=== PATIENT | male | born 1950 | race Caucasian/White ===

== ENCOUNTER 2019-10-26 07:29 | Emergency (ER) | payer OTHER, MEDICARE, SELFPAY ==
[2019-10-26 07:30] VITALS: BP 188/119; PULSE 114; RESP 18; TEMP 36.3; O2SAT 98; BMI 25.7
[2019-10-26 07:38] VITALS: BP 188/119; PULSE 114; RESP 18; TEMP 36.3; O2SAT 98
--- NOTE | 2019-10-26 07:48 | CT_ITS ---
STUDY: CT ABDOMEN AND PELVIS WITH CONTRAST REASON FOR EXAM: Male, 69 years old. MID ABDOM PAIN X 3 DAYS RADIATION DOSAGE (If Supplied By Facility): CTDIvol = ( 21.87 ) mGy, DLP = ( 851.05 ) mGycm TECHNIQUE: Transaxial images were obtained from the dome of the diaphragm to the symphysis pubis without oral contrast. IV 100mL Isovue-300 was administered. Sagittal and coronal images were reconstructed. Individualized dose optimization techniques were used for this CT. COMPARISON: None. FINDINGS: Minimal linear scarring at the right lung base. Coronary artery calcification. Normal liver. Small amount of perihepatic free fluid. Mildly distended gallbladder. I suspect sludge within the gallbladder lumen. Normal spleen. Normal pancreas. Extensive thrombus is seen within the superior mesenteric vein and the branches. The thrombus extends into the portal vein as well as the splenic vein. Diffuse edematous changes in the root of the mesentery. Normal bilateral adrenal glands. Normal right kidney. Normal left kidney. There is a small hiatal hernia. There is diffuse circumferential wall thickening and edema of the multiple small bowel loops in the jejunum and proximal ileum. Normal colon. The appendix is visualized and appears normal. There is diffuse atherosclerotic calcification of the abdominal aorta, without a demonstrated aneurysm. Normal inferior vena cava. Normal retroperitoneum. Normal urinary bladder. There are prostatic calcifications. Normal abdominal wall. Normal osseous structures. 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 Mural thickening of the several small bowel loops with edema and edema of the root of the mesentery. Small amount of perihepatic fluid. N.B. : The above information has been verbally conveyed by Tao Ramirez to MAGNUS FITZPATRICK on 10/26/2019 09:37:34 (ET). Electronically Signed: Tao Ramirez, at 9:40 EDT , Service support ,
--- NOTE | 2019-10-26 07:49 | ED.DCSUM_ITS ---
History of Present Illness Chief Complaint: Abd Pain Informant: Patient, Family Narrative: Patient is a 69-year-old male with a past medical history of diabetes, hypertension who presents to the emergency department for 3 days of abdominal pain. The majority the pain is around the umbilical region. He describes as a tight squeezing very severe pain. He has never had anything like this before in the past. It has been constant. He tried taking Tylenol for which did not give him any relief. No radiation into his back. He does not know any aggravating or relieving factors. No previous abdominal surgeries. Denies any nausea/vomiting. No fever/chills. No diarrhea/constipation, blood in stool or black tarry stools. He denies any chest pain or shortness of breath. No cough, cold, congestion. He has had some sweats. He is a current every day smoker. Past Medical History - Allergies and Home Meds Allergies/Adverse Reactions: Allergies No Known Allergies Allergy (Verified 10/26/19 07:33) Primary Care Physician: [facility] [Primary Care Provider] - Prior records reviewed: Yes Past Medical History: - - Diabetes, hypertension Surgical History: no surgical history Smoking Status: Current every day smoker Alcohol: Rare Drugs: None Review of Systems All systems negative except as indicated General: Reports: Sweats. Denies: Chills, Fever Eyes: Denies: Visual changes - bilaterally, Diplopia ENT: Denies: Rhinorrhea, Sore throat Cardiovascular: Denies: Chest pain, Palpitations Respiratory: Denies: Dyspnea, Cough, Dyspnea on exertion Gastrointestinal: Reports: Abdominal pain. Denies: Nausea, Vomiting, Diarrhea, Melena, Hematochezia Genitourinary: Denies: Dysuria, Hematuria, Frequency Musculoskeletal: Denies: Back pain, Extremity Pain Skin: Denies: Rash, Wounds Neurological: Denies: Headache, Weakness, Numbness Physical Exam Vital Signs/Narrative: Vital Signs Temp Pulse Resp BP Pulse Ox 10/26/19 07:38 97.4 F L 114 H 18 188/119 H 98 10/26/19 07:30 97.4 F L 114 H 18 188/119 H 98 Inital Vital Signs reviewed: Yes - Tachycardic, hypertensive General: Well nourished, Well developed, - - Patient does appear uncomfortable and is bracing himself. Head: Normocephalic, Atraumatic Eyes: Perrl, EOMI ENT: Moist mucous membranes, No rhinorrhea Neck: Supple, Nontender Cardiovascular: Regular rate, Regular rhythm, No murmurs Respiratory: No distress, CTA bilaterally, Chest nontender Abdomen: Soft, Nondistended, Tender - Periumbilical, no pain over McBurney's point., Guarding. Negative for: Rebound tenderness, Wills's sign Back: Nontender, Normal Inspection. Negative for: CVA tenderness Extremities: Nontender, No edema Skin: Normal color, No rash Neurological: Alert, Oriented x3, Cranial nerves II-XII grossly intact, Normal Strength, Normal Sensation Psychological: Normal affect, Normal Mood Diagnostic/Tx/Re-eval - EKG Initial EKG Interpretation: - - Rate of 106 bpm in sinus tachycardia. Left axis deviation. Normal intervals. No ST elevations or depressions appreciated. No T wave abnormalities. No prior EKG for comparison. - Medical Decision Making Patient presents to the emergency department for abdominal pain. Upon arrival to the emerge department is tachycardic and hypertensive. Does appear very uncomfortable. Given morphine for symptomatic treatment. Basic lab work obtained along with CT scan of the abdomen/pelvis. Unfortunately CT scan showed a enteric venous thrombosis with bowel wall thickening as well as edema around the bowel and mesenteric branch. Patient will require transfer due to specialized services to treat this. Patient did get 2 L of normal saline here in the emergency department. He was given a dose of Zosyn. Patient started on heparin per ICU doctor request at accepting site. This was all described to the patient and his daughter. They understand and are agreeable this plan. He has been tachycardic but otherwise stable throughout ED stay. Pain is relatively well controlled with the morphine. Patient transferred to [facility] as the first request of [facility] and also [facility] were not accepting patients.. - Critical Care Time Critical care time (excluding procedures): 30-74 minutes, Discussing w/Patient &/or Family/[employer], Discussing w/Consultants, Arranging Admission or Transfer, Performing Direct Patient Care at Bedside ED Disposition - Plan for ED Patient: Disposition: [facility] Diagnosis: Mesenteric venous thrombosis, Edema of small intestine, Severe sepsis [facility] [[facility] Care Provider] -
[2019-10-26] MEDS: Morphine 4 MG/ML Syringe IV (08:23)
[2019-10-26] MEDS: Ondansetron 4 MG/2 ML Vial IV (08:23)
[2019-10-26] MEDS: 0.9% Normal Saline 1,000 ML 999 ML IV ×2 (08:24→09:20)
--- NOTE | 2019-10-26 08:25 | ED.RN ---
NO OLD EKGS
[2019-10-26 08:26] LABS: Absolute Lymphocyte Count 1.36 X10^3/uL (0.83-4.51); Absolute Neutrophil Count 14.1 X10^3/uL (2.0-7.7); Basophil# 0.03 X10^3/uL; Basophil% 0.2 % (0-1); Differential Indicated SCAN CRITERIA MET; Eosinophil# 0.02 X10^3/uL; Eosinophils% 0.1 % (0-5); Hematocrit 47.2 % (40-54); Hemoglobin 16.3 g/dL (13.0-16.5); Lymphocyte # 1.36 X10^3/ul (4.0); Lymphocyte % 7.9 % (19-41); Mean Corp Hgb Conc 34.5 g/dL (32-36); Mean Corpuscular Hgb 30.9 pg (27.0-32.0); Mean Corpuscular Volume 89.6 fL (80-94); Mean Platelet Vol. 11.1 fl (6.2-12.0); Monocyte# 1.53 X10^3/uL; Monocyte% 8.9 % (0-10); NRBC Flagged by Analyzer 0 % (0-5); Neutrophil # 14.14 X10^3/uL (2.7-7.7); Neutrophil % 82.1 % (47-70); POSITIVE DIFFERENTIAL YES; Platelet Count 193 K/mm3 (150-450); RBC Distribution Width CV 13.7 % (11.6-14.6); RBC Distribution Width SD 44.5 fl (35.1-43.9); Red Blood Count 5.27 M/mm3 (4.6-6.2); White Blood Count 17.2 K/mm3 (4.4-11.0)
[2019-10-26 08:33] VITALS: BP 181/101; PULSE 100; RESP 18; TEMP 36.6; O2SAT 96
[2019-10-26 08:44] LABS: ALB/GLOB Ratio 0.7 RATIO (0.9-2.4); AST(SGOT) 27 U/L (15-37); Alanine Aminotransfer ALT/SGPT 19 U/L (16-61); Albumin, Serum 3.5 g/dL (3.2-5.0); Alkaline Phosphatase 102 U/L (45-117); Anion Gap 9 (5-15); BUN 20 mg/dL (7-18); BUN/Creat Ratio 15.3 RATIO (10-20); Calcium,Total 9.3 mg/dL (8.5-10.1); Chloride 100 mmol/L (98-107); Creatinine, Serum 1.31 mg/dL (0.70-1.30); EST Glomerular Filtration Rate 57 mL/min (>60); Est Glom Filt Rate - Afr Amer 69 mL/min (>60); Estimated Creatinine Clearance 48.36 ml/min; Globulin 5.2 g/dL (2.2-4.2); Glucose 229 mg/dL (74-106); Lipase 104 U/L (73-393); Potassium 4.6 mmol/L (3.5-5.1); Protein, Total 8.7 g/dL (6.4-8.2); Sodium Level 129 mmol/L (136-145)
--- NOTE | 2019-10-26 08:50 | ED.RN ---
DR FITZPATRICK NOTIFIED PT C/O BURNING UP ON THE INSIDE
[2019-10-26 08:55] LABS: Lactic Acid 2.6 mmol/L (0.4-1.9)
--- NOTE | 2019-10-26 08:58 | ED.RN ---
0852-- sepsis alert . dr alan notified. no new orders at present time.
[2019-10-26 09:00] VITALS: BP 172/98; PULSE 101; RESP 18; TEMP 36.6; O2SAT 99
--- NOTE | 2019-10-26 09:38 | ED.RN ---
[facility] NO BEDS AVAILABLE.
--- NOTE | 2019-10-26 09:39 | EKG12_ITS ---
Test Reason : ABD PAIN Blood Pressure : / mmHG Vent. Rate : 106 BPM Atrial Rate : 106 BPM P-R Int : 198 ms QRS Dur : 080 ms QT Int : 352 ms P-R-T Axes : 027 -55 030 degrees QTc Int : 467 ms Sinus tachycardia Left axis deviation Low voltage QRS Inferior infarct , age undetermined Anterolateral infarct , age undetermined Abnormal ECG Confirmed by JANE GARCIA, REY ([id number]), make up editor AL CAMPA ([id number]) on 10/31/2019 8:52:05 AM Referred By: NANETTE Confirmed By:REY LARA MD
--- NOTE | 2019-10-26 09:40 | ED.RN ---
[facility] CLOSED TO OUTSIDE TRANSFERS
--- NOTE | 2019-10-26 09:49 | ED.RN ---
[facility] NO TRAVEL BENEFITS
--- NOTE | 2019-10-26 09:53 | ED.RN ---
[facility] RE[facility], CHART FA[facility]ED TO THEM.
[2019-10-26 10:00] VITALS: BP 179/99; PULSE 112; RESP 16; TEMP 36.6; O2SAT 98; O2SAT 99
--- NOTE | 2019-10-26 10:09 | NURSING ---
1001 called [facility] 1007 15 min eta
[2019-10-26 10:17] LABS: International Normalized Ratio 1.3; Prothrombin Time (Protime)PT. 15.9 SECONDS (11.7-14.9)
[2019-10-26 10:18] LABS: Partial Thromboplast Time 28.8 Seconds (24.1-36.2)
[2019-10-26] MEDS: Heparin Injection (Vial) 5,000 UNIT/ML VIAL 4000 UNIT IV (10:19)
[2019-10-26] MEDS: HEPARIN/D5w 25,000 UNITS 25,000 UNITS/250 ML IV.SOLN. 9 UNITS IV (10:39)
[2019-10-26 10:46] VITALS: BP 179/99; PULSE 112; RESP 16; O2SAT 99
[2019-10-26 12:22] LABS: Reflex Lactate? Y
[2019-10-26 13:56] LABS: Pathologist Review Reviewed
== END 2019-10-26 10:49 | disposition short-term general hospital (02) ==
PROVIDERS: Emergency Provider Emergency Medicine
DX: A41.9 Sepsis, unspecified organism (principal); R65.20 Severe sepsis without septic shock; I82.890 Acute embolism and thrombosis of other specified veins; K55.059 Acute (reversible) ischemia of intestine, part and extent unspecified; E11.9 Type 2 diabetes mellitus without complications; I10 Essential (primary) hypertension; F17.200 Nicotine dependence, unspecified, uncomplicated
CPT/HCPCS: 74177; 80053; 83605; 83690; 84484; 85025; 85610; 85730; 93005; 96361; 96365; 96375; 99285; J7030; Q9967; A4216; J2405

== ENCOUNTER 2020-04-08 16:14 | Outpatient (RCR) | payer MEDICARE, SELFPAY ==
[2020-04-08 18:01] LABS: Hematocrit 37.7 % (40-54); Hemoglobin 11.8 g/dL (13.0-16.5); Mean Corp Hgb Conc 31.3 g/dL (32-36); Mean Corpuscular Volume 92.6 fL (80-94); Mean Platelet Vol. 11.6 fl (6.2-12.0); Platelet Count 289 K/mm3 (150-450); RBC Distribution Width CV 15.9 % (11.6-14.6); RBC Distribution Width SD 53.8 fl (35.1-43.9); Red Blood Count 4.07 M/mm3 (4.6-6.2); White Blood Count 8.1 K/mm3 (4.4-11.0)
[2020-04-08 18:03] LABS: International Normalized Ratio 3.1; Prothrombin Time (Protime)PT. 31.8 SECONDS (11.7-14.9)
== END 2020-04-08 18:00 | disposition home or self-care (01) ==
LOC: MTLAB 16:14
DX: Z79.01 Long term (current) use of anticoagulants (principal)
CPT/HCPCS: 36415; 85027; 85610

== ENCOUNTER 2020-05-02 16:45 | Outpatient (RCR) | payer MEDICARE, MEDICAID, SELFPAY ==
[2020-05-02 17:57] LABS: Prothrombin Time (Protime)PT. 22.1 SECONDS (11.7-14.9)
== END 2020-05-02 18:00 | disposition home or self-care (01) ==
LOC: MTLAB 16:45
DX: Z79.01 Long term (current) use of anticoagulants (principal)
CPT/HCPCS: 36415; 85610

== ENCOUNTER 2020-05-30 15:33 | Outpatient (RCR) | payer MEDICARE, MEDICAID, SELFPAY ==
[2020-05-30 17:41] LABS: International Normalized Ratio 3.1; Prothrombin Time (Protime)PT. 31.4 SECONDS (11.7-14.9)
== END 2020-05-30 18:00 | disposition home or self-care (01) ==
LOC: MTLAB 15:33
DX: Z79.01 Long term (current) use of anticoagulants (principal)
CPT/HCPCS: 36415; 85610

== ENCOUNTER 2020-08-09 14:41 | Outpatient (RCR) | payer MEDICARE, MEDICAID, SELFPAY ==
[2020-08-09 17:37] LABS: International Normalized Ratio 1.7; Prothrombin Time (Protime)PT. 19.4 SECONDS (11.7-14.9)
== END 2020-08-09 18:00 | disposition home or self-care (01) ==
LOC: MTLAB 14:41
DX: Z79.01 Long term (current) use of anticoagulants (principal)
CPT/HCPCS: 36415; 85610

== ENCOUNTER 2020-09-17 16:14 | Outpatient (RCR) | payer MEDICARE, MEDICAID, SELFPAY ==
[2020-08-29 18:01] LABS: International Normalized Ratio 1.4; Prothrombin Time (Protime)PT. 16.3 SECONDS (11.7-14.9)
[2020-09-17 17:50] LABS: International Normalized Ratio 1.8; Prothrombin Time (Protime)PT. 20.6 SECONDS (11.7-14.9)
[2020-09-17 17:53] LABS: Hematocrit 36.1 % (40-54); Hemoglobin 11.2 g/dL (13.0-16.5); Mean Corpuscular Hgb 29.3 pg (27.0-32.0); Mean Corpuscular Volume 94.5 fL (80-94); Platelet Count 172 K/mm3 (150-450); RBC Distribution Width CV 15.2 % (11.6-14.6); Red Blood Count 3.82 M/mm3 (4.6-6.2); White Blood Count 4.7 K/mm3 (4.4-11.0)
== END 2020-09-17 18:00 | disposition home or self-care (01) ==
LOC: MTLAB 16:14
DX: Z79.01 Long term (current) use of anticoagulants (principal)
CPT/HCPCS: 36415; 85027; 85610

== ENCOUNTER 2020-10-29 16:59 | Outpatient (RCR) | payer MEDICARE, MEDICAID, SELFPAY ==
[2020-10-29 18:01] LABS: International Normalized Ratio 2.7; Prothrombin Time (Protime)PT. 27.8 SECONDS (11.7-14.9)
== END 2020-10-29 18:00 | disposition home or self-care (01) ==
LOC: MTLAB 16:59
DX: Z79.01 Long term (current) use of anticoagulants (principal)
CPT/HCPCS: 36415; 85610

== ENCOUNTER 2020-12-05 15:51 | Outpatient (RCR) | payer MEDICARE, MEDICAID, SELFPAY ==
[2020-11-27 01:24] VITALS: BMI 25.7
[2020-12-05 18:33] LABS: International Normalized Ratio 1.7; Prothrombin Time (Protime)PT. 19.6 SECONDS (11.7-14.9)
== END 2020-12-05 18:00 | disposition home or self-care (01) ==
LOC: MTLAB 15:51
DX: Z79.01 Long term (current) use of anticoagulants (principal)
CPT/HCPCS: 36415; 85610

== ENCOUNTER 2021-01-07 16:44 | Outpatient (RCR) | payer MEDICARE, MEDICAID, SELFPAY ==
[2020-12-27 01:59] VITALS: BMI 25.7
[2021-01-07 18:04] LABS: International Normalized Ratio 2.2; Prothrombin Time (Protime)PT. 23.7 SECONDS (11.7-14.9)
== END 2021-01-26 18:00 | disposition home or self-care (01) ==
LOC: MTLAB 16:44
DX: Z79.01 Long term (current) use of anticoagulants (principal)
CPT/HCPCS: 36415; 85610

== ENCOUNTER 2021-01-30 16:45 | Outpatient (RCR) | payer MEDICARE, MEDICAID, SELFPAY ==
[2021-01-26 20:37] VITALS: BMI 25.7
[2021-01-30 18:14] LABS: International Normalized Ratio 2.7; Prothrombin Time (Protime)PT. 27.8 SECONDS (11.7-14.9)
== END 2021-02-25 18:00 | disposition home or self-care (01) ==
LOC: MTLAB 16:45
DX: Z79.01 Long term (current) use of anticoagulants (principal)
CPT/HCPCS: 36415; 85610

== ENCOUNTER 2021-02-27 16:21 | Outpatient (RCR) | payer MEDICARE, MEDICAID, SELFPAY ==
[2021-02-26 04:09] VITALS: BMI 25.7
[2021-02-27 17:45] LABS: International Normalized Ratio 2.5; Prothrombin Time (Protime)PT. 26.1 SECONDS (11.7-14.9)
== END 2021-03-29 18:00 | disposition home or self-care (01) ==
LOC: MTLAB 16:21
DX: Z79.01 Long term (current) use of anticoagulants (principal)
CPT/HCPCS: 36415; 85610

== ENCOUNTER 2021-04-03 15:18 | Outpatient (RCR) | payer MEDICARE, MEDICAID, SELFPAY ==
[2021-03-30 18:22] VITALS: BMI 25.7
[2021-04-03 18:28] LABS: International Normalized Ratio 2.5; Prothrombin Time (Protime)PT. 26.1 SECONDS (11.7-14.9)
== END 2021-04-28 18:00 | disposition home or self-care (01) ==
LOC: MTLAB 15:18
DX: Z79.01 Long term (current) use of anticoagulants (principal)
CPT/HCPCS: 36415; 85610

== ENCOUNTER 2021-05-15 15:18 | Outpatient (RCR) | payer MEDICARE, MEDICAID, SELFPAY ==
[2021-04-29 01:46] VITALS: BMI 25.7
[2021-05-15 18:02] LABS: International Normalized Ratio 2.8; Prothrombin Time (Protime)PT. 28.4 SECONDS (11.7-14.9)
== END 2021-05-15 23:59 | disposition home or self-care (01) ==
LOC: MTLAB 15:18
DX: I48.20 Chronic atrial fibrillation, unspecified (principal); Z79.01 Long term (current) use of anticoagulants
CPT/HCPCS: 36415; 85610

== ENCOUNTER 2021-08-14 16:54 | Outpatient (RCR) | payer MEDICARE, MEDICAID, SELFPAY ==
[2021-05-27 10:20] VITALS: BMI 25.7
[2021-08-14 17:53] LABS: Hematocrit 34.7 % (40-54); Hemoglobin 10.8 g/dL (13.0-16.5); Mean Corp Hgb Conc 31.1 g/dL (32-36); Mean Corpuscular Hgb 29.4 pg (27.0-32.0); Mean Corpuscular Volume 94.6 fL (80-94); Mean Platelet Vol. 11.2 fl (6.2-12.0); Platelet Count 191 K/mm3 (150-450); RBC Distribution Width CV 16.9 % (11.6-14.6); Red Blood Count 3.67 M/mm3 (4.6-6.2); White Blood Count 4.5 K/mm3 (4.4-11.0)
[2021-08-14 17:58] LABS: Prothrombin Time (Protime)PT. 31.2 SECONDS (11.7-14.9)
== END 2021-08-14 18:00 | disposition home or self-care (01) ==
LOC: MTLAB 16:54
DX: Z79.01 Long term (current) use of anticoagulants (principal)
CPT/HCPCS: 36415; 85027; 85610

== ENCOUNTER → 2021-09-05 | Outpatient (REF) | payer MEDICARE, MEDICAID, SELFPAY ==
[2021-09-05 08:51] LABS: INR Fingerstick 4.6; Prothrombin Time Fingerstick 50.1 SEC (11.7-14.9)
[2021-09-05 09:03] LABS: Prothrombin Time (Protime)PT. 47.9 SECONDS (11.7-14.9)
[2021-09-05 09:18] LABS: International Normalized Ratio 5.2
== END | disposition home or self-care (01) ==
LOC: OLS.SW1020 05:00
PROVIDERS: Visit Provider Internal Medicine
DX: Z79.01 Long term (current) use of anticoagulants (principal)
CPT/HCPCS: 36416; 85610

== ENCOUNTER → 2021-09-08 | Outpatient (REF) | payer MEDICARE, MEDICAID, SELFPAY ==
[2021-09-08 07:50] LABS: INR Fingerstick 1.2; Prothrombin Time Fingerstick 14.4 SEC (11.7-14.9)
== END | disposition home or self-care (01) ==
LOC: OLS.SW1020 04:00
PROVIDERS: Referring Provider Internal Medicine; Visit Provider Internal Medicine
DX: Z79.01 Long term (current) use of anticoagulants (principal)
CPT/HCPCS: 36416; 85610

== ENCOUNTER 2021-09-15 06:10 | Outpatient (REF) | payer SELFPAY ==
[2021-09-15 09:05] LABS: Absolute Lymphocyte Count 0.59 X10^3/uL (0.83-4.51); Absolute Neutrophil Count 2.6 X10^3/uL (2.0-7.7); Basophil# 0.01 X10^3/uL; Basophil% 0.3 % (0-1); Eosinophil# 0.12 X10^3/uL; Hematocrit 27.1 % (40-54); Hemoglobin 8.8 g/dL (13.0-16.5); Lymphocyte # 0.59 X10^3/ul (0.83-4.51); Mean Corp Hgb Conc 32.5 g/dL (32-36); Mean Corpuscular Hgb 29.4 pg (27.0-32.0); Mean Corpuscular Volume 90.6 fL (80-94); Mean Platelet Vol. 11.6 fl (6.2-12.0); Monocyte# 0.59 X10^3/uL; NRBC Flagged by Analyzer 0 % (0-5); Neutrophil # 2.61 X10^3/uL (2.7-7.7); Neutrophil % 66.2 % (47-70); POSITIVE DIFFERENTIAL YES; Platelet Count 143 K/mm3 (150-450); RBC Distribution Width SD 53.3 fl (35.1-43.9); Red Blood Count 2.99 M/mm3 (4.6-6.2); White Blood Count 3.9 K/mm3 (4.4-11.0)
[2021-09-15 09:10] LABS: Differential Indicated SCAN CRITERIA MET
[2021-09-15 09:15] LABS: International Normalized Ratio 1.5; Prothrombin Time (Protime)PT. 18.1 SECONDS (11.7-14.9)
[2021-09-15 09:29] LABS: Anion Gap 6 (5-15); BUN 12 mg/dL (7-18); BUN/Creat Ratio 14.1 RATIO (10-20); Calcium,Total 8.3 mg/dL (8.5-10.1); Chloride 107 mmol/L (98-107); Cholesterol 71 mg/dL (200); Creatinine, Serum 0.85 mg/dL (0.70-1.30); EST Glomerular Filtration Rate 94 mL/min (>60); Est Glom Filt Rate - Afr Amer 114 mL/min (>60); Ferritin 95 ng/mL (26-388); Glucose 113 mg/dL (74-106); High Density Lipoprotein 27 mg/dL; Iron 22 ug/dL (65-175); Potassium 3.8 mmol/L (3.5-5.1); Sodium Level 138 mmol/L (136-145); Triglycerides 47 mg/dL; Very Low Density Lipoprotein 9 mg/dL (5-40)
[2021-09-15 09:46] LABS: Anisocytosis 1+; Hypochromasia 1+; Platelet Estimate ADEQUATE (ADEQ)
[2021-09-16 13:40] LABS: Pathologist Review Reviewed
== END 2021-09-15 23:59 | disposition home or self-care (01) ==
LOC: OLS.SW1020 06:10
PROVIDERS: Visit Provider Internal Medicine
DX: E78.5 Hyperlipidemia, unspecified (principal); I85.00 Esophageal varices without bleeding; K74.60 Unspecified cirrhosis of liver; E11.9 Type 2 diabetes mellitus without complications; E55.9 Vitamin D deficiency, unspecified; I10 Essential (primary) hypertension
CPT/HCPCS: 36415; 80048; 80061; 82728; 83540; 83735; 85025; 85610

== ENCOUNTER → 2021-09-17 | Outpatient (REF) | payer SELFPAY ==
[2021-09-17 06:35] LABS: Hemoglobin 8.2 g/dL (13.0-16.5); Mean Corp Hgb Conc 31.5 g/dL (32-36); Mean Corpuscular Hgb 28.7 pg (27.0-32.0); Mean Corpuscular Volume 90.9 fL (80-94); Mean Platelet Vol. 11.4 fl (6.2-12.0); Platelet Count 150 K/mm3 (150-450); RBC Distribution Width CV 16.1 % (11.6-14.6); RBC Distribution Width SD 53.5 fl (35.1-43.9); Red Blood Count 2.86 M/mm3 (4.6-6.2); White Blood Count 3.8 K/mm3 (4.4-11.0)
[2021-09-17 06:54] LABS: Anion Gap 5 (5-15); BUN 15 mg/dL (7-18); BUN/Creat Ratio 16.8 RATIO (10-20); Calcium,Total 8.3 mg/dL (8.5-10.1); Chloride 110 mmol/L (98-107); Creatinine, Serum 0.89 mg/dL (0.70-1.30); EST Glomerular Filtration Rate 89 mL/min (>60); Est Glom Filt Rate - Afr Amer 107 mL/min (>60); Glucose 100 mg/dL (74-106); Potassium 3.9 mmol/L (3.5-5.1); Sodium Level 140 mmol/L (136-145)
== END | disposition home or self-care (01) ==
LOC: OLS.SW400 04:00
PROVIDERS: Referring Provider Internal Medicine; Visit Provider Internal Medicine
DX: R68.89 Other general symptoms and signs (principal)
CPT/HCPCS: 36415; 80048; 83735; 85027

== ENCOUNTER 2021-09-19 05:00 | Outpatient (REF) | payer SELFPAY ==
[2021-09-19 07:31] LABS: INR Fingerstick 1.8; Prothrombin Time Fingerstick 21.7 SEC (11.7-14.9)
== END 2021-09-19 23:59 | disposition home or self-care (01) ==
LOC: OLS.SW400 05:00
PROVIDERS: Visit Provider Internal Medicine
DX: Z79.01 Long term (current) use of anticoagulants (principal)
CPT/HCPCS: 36416; 85610

== ENCOUNTER → 2021-09-23 | Outpatient (REF) | payer SELFPAY ==
[2021-09-23 08:32] LABS: Hematocrit 27.4 % (40-54); Hemoglobin 8.5 g/dL (13.0-16.5); Mean Corpuscular Hgb 28.3 pg (27.0-32.0); Mean Corpuscular Volume 91.3 fL (80-94); Mean Platelet Vol. 11.2 fl (6.2-12.0); Platelet Count 199 K/mm3 (150-450); RBC Distribution Width CV 16.2 % (11.6-14.6); RBC Distribution Width SD 54.5 fl (35.1-43.9); White Blood Count 4.1 K/mm3 (4.4-11.0)
[2021-09-23 08:35] LABS: Prothrombin Time (Protime)PT. 30.7 SECONDS (11.7-14.9)
[2021-09-23 08:40] LABS: Anion Gap 6 (5-15); BUN 17 mg/dL (7-18); BUN/Creat Ratio 16.5 RATIO (10-20); Calcium,Total 8.2 mg/dL (8.5-10.1); Chloride 107 mmol/L (98-107); Cholesterol 77 mg/dL (200); Creatinine, Serum 1.03 mg/dL (0.70-1.30); EST Glomerular Filtration Rate 75 mL/min (>60); Est Glom Filt Rate - Afr Amer 91 mL/min (>60); Ferritin 83 ng/mL (26-388); Glucose 121 mg/dL (74-106); High Density Lipoprotein 27 mg/dL; Iron 19 ug/dL (65-175); Magnesium 2.1 mg/dL (1.6-2.6); Potassium 4.1 mmol/L (3.5-5.1); Sodium Level 139 mmol/L (136-145); Triglycerides 41 mg/dL; Very Low Density Lipoprotein 8 mg/dL (5-40)
== END | disposition home or self-care (01) ==
LOC: OLS.SW400 05:00
PROVIDERS: Visit Provider Internal Medicine
DX: I10 Essential (primary) hypertension (principal); J44.9 Chronic obstructive pulmonary disease, unspecified; E11.9 Type 2 diabetes mellitus without complications; E78.5 Hyperlipidemia, unspecified; Z79.01 Long term (current) use of anticoagulants
CPT/HCPCS: 36415; 80048; 80061; 82728; 83036; 83540; 83735; 85027; 85610

== ENCOUNTER → 2021-09-26 | Outpatient (REF) | payer SELFPAY ==
[2021-09-26 15:40] LABS: INR Fingerstick 1.6; Prothrombin Time Fingerstick 19.7 SEC (11.7-14.9)
== END | disposition home or self-care (01) ==
LOC: OLS.SW400 08:10
PROVIDERS: Visit Provider Internal Medicine
DX: Z79.01 Long term (current) use of anticoagulants (principal)
CPT/HCPCS: 36416; 85610

== ENCOUNTER → 2021-10-03 | Outpatient (REF) | payer SELFPAY ==
[2021-10-03 16:37] LABS: International Normalized Ratio 2.2; Prothrombin Time (Protime)PT. 24.1 SECONDS (11.7-14.9)
== END | disposition home or self-care (01) ==
LOC: OLS.SW400 15:10
PROVIDERS: Referring Provider Internal Medicine; Visit Provider Internal Medicine
DX: Z79.01 Long term (current) use of anticoagulants (principal)
CPT/HCPCS: 36415; 85610

== ENCOUNTER → 2021-10-06 | Outpatient (REF) | payer SELFPAY ==
[2021-10-06 07:52] LABS: Anion Gap 7 (5-15); BUN 15 mg/dL (7-18); BUN/Creat Ratio 15.4 RATIO (10-20); Calcium,Total 8.2 mg/dL (8.5-10.1); Chloride 106 mmol/L (98-107); Creatinine, Serum 0.98 mg/dL (0.70-1.30); EST Glomerular Filtration Rate 80 mL/min (>60); Est Glom Filt Rate - Afr Amer 97 mL/min (>60); Glucose 101 mg/dL (74-106); Sodium Level 140 mmol/L (136-145)
[2021-10-06 08:31] LABS: International Normalized Ratio 2.1; Prothrombin Time (Protime)PT. 23.3 SECONDS (11.7-14.9)
== END | disposition home or self-care (01) ==
LOC: OLS.SW400 05:00
PROVIDERS: Visit Provider Internal Medicine
DX: Z79.01 Long term (current) use of anticoagulants (principal)
CPT/HCPCS: 36415; 80048; 85610

== ENCOUNTER → 2021-10-13 | Outpatient (REF) | payer SELFPAY ==
[2021-10-13 08:10] LABS: INR Fingerstick 2.4; Prothrombin Time Fingerstick 27.7 SEC (11.7-14.9)
[2021-10-16 20:06] LABS: Prothrombin Time Fingerstick 12.7 SEC (11.7-14.9)
== END | disposition home or self-care (01) ==
LOC: OLS.SW400 05:00
PROVIDERS: Visit Provider Family Medicine
DX: Z79.01 Long term (current) use of anticoagulants (principal)
CPT/HCPCS: 36416; 85610

== ENCOUNTER → 2021-10-20 | Outpatient (REF) | payer MEDICARE, MEDICAID, SELFPAY ==
[2021-10-20 07:40] LABS: INR Fingerstick 1.9; Prothrombin Time Fingerstick 23.1 SEC (11.7-14.9)
== END | disposition home or self-care (01) ==
LOC: OLS.SW400 04:00
PROVIDERS: Referring Provider Internal Medicine; Visit Provider Internal Medicine
DX: Z79.01 Long term (current) use of anticoagulants (principal)
CPT/HCPCS: 36416; 85610

== ENCOUNTER → 2021-10-21 | Outpatient (REF) | payer MEDICARE, MEDICAID, SELFPAY ==
[2021-10-21 09:06] LABS: Absolute Lymphocyte Count 0.61 X10^3/uL (0.83-4.51); Absolute Neutrophil Count 2.9 X10^3/uL (2.0-7.7); Basophil# 0.01 X10^3/uL; Basophil% 0.2 % (0-1); Eosinophil# 0.06 X10^3/uL; Eosinophils% 1.5 % (0-5); Hematocrit 27.1 % (40-54); Hemoglobin 8.5 g/dL (13.0-16.5); Lymphocyte # 0.61 X10^3/ul (0.83-4.51); Lymphocyte % 14.9 % (19-41); Mean Corp Hgb Conc 31.4 g/dL (32-36); Mean Corpuscular Hgb 28.5 pg (27.0-32.0); Mean Corpuscular Volume 90.9 fL (80-94); Mean Platelet Vol. 12.2 fl (6.2-12.0); Monocyte# 0.51 X10^3/uL; Monocyte% 12.4 % (0-10); NRBC Flagged by Analyzer 0 % (0-5); Neutrophil # 2.89 X10^3/uL (2.7-7.7); Neutrophil % 70.5 % (47-70); Platelet Count 153 K/mm3 (150-450); RBC Distribution Width CV 17.2 % (11.6-14.6); RBC Distribution Width SD 56.8 fl (35.1-43.9); Red Blood Count 2.98 M/mm3 (4.6-6.2); White Blood Count 4.1 K/mm3 (4.4-11.0)
== END | disposition home or self-care (01) ==
LOC: OLS.SW400 05:00
PROVIDERS: Visit Provider Internal Medicine
DX: E78.5 Hyperlipidemia, unspecified (principal); F03.90 Unspecified dementia, unspecified severity, without behavioral disturbance, psychotic disturbance, mood disturbance, and anxiety; E11.9 Type 2 diabetes mellitus without complications
CPT/HCPCS: 36415; 85025

== ENCOUNTER → 2021-10-27 | Outpatient (REF) | payer MEDICARE, MEDICAID, SELFPAY ==
[2021-10-27 07:41] LABS: INR Fingerstick 1.4; Prothrombin Time Fingerstick 17.1 SEC (11.7-14.9)
== END ==
LOC: OLS.SW400 05:00
PROVIDERS: Referring Provider Internal Medicine; Visit Provider Internal Medicine
DX: Z79.01 Long term (current) use of anticoagulants (principal)
CPT/HCPCS: 36416; 85610

== ENCOUNTER → 2021-11-04 | Outpatient (REF) | payer MEDICARE, MEDICAID, SELFPAY ==
[2021-11-04 08:31] LABS: Anion Gap 4 (5-15); BUN 17 mg/dL (7-18); BUN/Creat Ratio 17.3 RATIO (10-20); Calcium,Total 8.6 mg/dL (8.5-10.1); Chloride 107 mmol/L (98-107); Creatinine, Serum 0.98 mg/dL (0.70-1.30); EST Glomerular Filtration Rate 79 mL/min (>60); Est Glom Filt Rate - Afr Amer 96 mL/min (>60); Glucose 122 mg/dL (74-106); Prothrombin Time (Protime)PT. 22.1 SECONDS (11.7-14.9); Sodium Level 138 mmol/L (136-145)
== END ==
LOC: OLS.SW400 05:45
PROVIDERS: Visit Provider Internal Medicine
DX: I10 Essential (primary) hypertension (principal); F03.90 Unspecified dementia, unspecified severity, without behavioral disturbance, psychotic disturbance, mood disturbance, and anxiety; J44.9 Chronic obstructive pulmonary disease, unspecified; E11.9 Type 2 diabetes mellitus without complications; E78.5 Hyperlipidemia, unspecified; Z79.01 Long term (current) use of anticoagulants
CPT/HCPCS: 36415; 80048; 85610

== ENCOUNTER 2021-11-07 12:55 | Emergency (ER) | payer MEDICARE, MEDICAID, SELFPAY ==
[2021-11-07 12:56] VITALS: BP 87/57; PULSE 72; RESP 16; TEMP 36.6; O2SAT 100; BMI 23.0
--- NOTE | 2021-11-07 13:26 | CT_ITS ---
HISTORY: trauma. TECHNIQUE: Multiple axial images were obtained of the head without intravenous contrast. A radiation dose optimization technique was used for this scan. 238 images. COMPARISON: None. FINDINGS: BRAIN PARENCHYMA: Chronic small vessel ischemic gliosis noted. No acute intra-axial hemorrhage. Small calcification in the right renata. CSF SPACES: Generalized volume loss. No midline shift or other significant mass effect. No acute extra-axial hemorrhage. CALVARIUM: Intact. Mild right posterior scalp contusion. PARANASAL SINUSES AND MASTOID AIR CELLS: Clear. ORBITS: Unremarkable. CT/Brain/Head without Contrast IMPRESSION: No acute intracranial process identified. Mild right posterior scalp contusion. Electronically Signed: Eloise Colon MD at 14:25 EDT ,
--- NOTE | 2021-11-07 13:27 | EKG12_ITS ---
Test Reason : FALL Blood Pressure : / mmHG Vent. Rate : 071 BPM Atrial Rate : 071 BPM P-R Int : 222 ms QRS Dur : 094 ms QT Int : 442 ms P-R-T Axes : 048 -35 022 degrees QTc Int : 480 ms Sinus rhythm with 1st degree A-V block Left axis deviation Poor R wave progression Abnormal ECG Confirmed by DEREK GARCIA, MIKAL ([id number]), order editor AL CAMPA ([id number]) on 11/10/2021 10:12:38 AM Referred By: Confirmed By:MIKAL REED MD
--- NOTE | 2021-11-07 13:27 | ED.VIS.FALL ---
HPI HPI - Fall History of Present Illness Chief Complaint: Fall Informant: patient and EMS Narrative Narrative: Patient has no complaints. He states that people keep telling him he fell but he does not remember this. He has no chest pain trouble breathing or any complaints. Nothing hurts. He is not a good informant for details. He evidently has some dementia. He states he takes no medicines but certainly he does. 1 of these is also Coumadin. Nothing makes symptoms better or worse as he has no symptoms. The patient is reportedly at his baseline level of alertness and orientation. [facility] Medical History COPD (chronic obstructive pulmonary disease) Dementia Depression Hearing loss HLD (hyperlipidemia) HTN (hypertension) MENDOZA (nonalcoholic steatohepatitis) Type 2 diabetes mellitus Home Medications ferrous sulfate 325 mg (65 mg iron) tablet 325 mg PO DAILY 11/07/21 [History Last Taken Unknown] furosemide 40 mg tablet (Lasix) 40 mg PO DAILY 11/07/21 [History Last Taken Unknown] multivitamin 1 tab PO DAILY 11/07/21 [History Last Taken Unknown] nadolol 20 mg tablet 10 mg PO DAILY 11/07/21 [History Last Taken Unknown] pantoprazole 40 mg tablet,delayed release (Protonix) 40 mg PO DAILY 11/07/21 [History Last Taken Unknown] sertraline 50 mg tablet 50 mg PO DAILY 11/07/21 [History Last Taken Unknown] spironolactone 25 mg tablet 12.5 mg PO DAILY 11/07/21 [History Last Taken Unknown] warfarin 2.5 mg tablet 2.5 mg PO QHS 11/07/21 [History Last Taken Unknown] Allergy/AdvReac Type Severity Reaction Status Date / Time No Known Allergies Allergy Verified 11/07/21 12:56 Social History Smoking Status: Former smoker ROS ROS ED ROS Narrative Review of systems is not really easy to obtain. Patient has dementia. He denies complete review of systems in all areas but he also denies falling. Therefore I cannot put significant stock in his statements. Therefore the review of systems is although done is not verified or guaranteed to be negative as his answers are. EXAM Physical Exam Const Vital Signs: 11/07/21 12:56 11/07/21 13:07 Temperature 97.9 F Temperature Source Temporal Pulse Rate 72 Respiratory Rate 16 Respiratory Effort Normal Non-Labored Blood Pressure 87/57 L Blood Pressure Mean 67 Pulse Ox 100 Oxygen Delivery Method Room Air Room Air Positive well nourished and well developed Constitutional Narrative: Patient is calm comfortable sitting in bed. General Appearance ED: well developed HEENT Reports normocephalic HEENT Narrative: I have looked through his hair and scalp. I see no contusions or abrasions. No tender areas. Eyes General Eye ED: Negative for scleral icterus Neck General: Negative for tenderness Chest Wall inspection of chest normal and palpation of chest normal Resp normal respiratory effort Auscultation: Negative for rales, rhonchi or wheezes Cardio regular rate GI non-tender, non-distended and no masses Inspection: Negative for abdominal distention Palpation: soft Back/Spine no CVA tenderness Neuro Neuro Narrative: Patient awake and alert. He is oriented to person place. He inks he is at his facility but then corrected himself. He was not sure what building he was in. When I mention these in the hospital he thought that was likely. He was not sure of the year. He guessed it might be 2005. Sensorium / Orientation: alert; Negative for lethargic or stuporous Psych Attitude: No agitated Skin Lesions: no lesions Rashes: no rashes Trauma: Negative for abrasion or laceration MDM MDM MDM Narrative Medical decision making narrative: Patient's INR is therapeutic hemoglobin is low but at baseline. Electrolytes show no marked abnormalities. CT showed a right posterior scalp contusion I do not see clinically. But there is no other acute process. Blood pressure is being rechecked. But the patient is up awake alert has great peripheral pulses. Lab Data Attestation: I reviewed the patient's lab results. Labs: Laboratory Results - last 24 hr 11/07/21 11/07/21 11/07/21 13:42 13:42 13:42 WBC 4.4 RBC 3.08 L Hgb 8.9 L Hct 28.4 L MCV 92.2 MCH 28.9 MCHC 31.3 L RDW Std Deviation 60.0 H RDW Coeff of Bradley 17.6 H Plt Count 164 MPV 10.7 Immature Gran % (Auto) 0.200 Neut % (Auto) 64.4 Lymph % (Auto) 15.6 L [place] % (Auto) 17.9 H Eos % (Auto) 1.4 Baso % (Auto) 0.5 Absolute Neuts (auto) 2.8 Absolute Lymphs (auto) 0.68 L Nucleated RBC % 0 PT 24.1 H INR 2.2 Sodium 140 Potassium 3.5 Chloride 110 H Carbon Dioxide 26.0 Anion Gap 4 L BUN 19 H Creatinine 1.12 Estim Creat Clear Calc 54.92 Est GFR (MDRD) Af Amer 83 Est GFR (MDRD) Non-Af 68 BUN/Creatinine Ratio 17.0 Glucose 124 H Calcium 8.7 Radiography Diagnostic Testing: Clinical Impression(s) from Imaging Studies Brain CT 11/07/21 13:26 IMPRESSION: No acute intracranial process identified. Mild right posterior scalp contusion. Electronically Signed: Eloise Colon MD at 14:25 EDT , EKG Initial EKG: Comments: EKG done for fall. Read by me shows sinus rhythm with first-degree AV block. No ventricular ectopy. No acute ST elevation or depression. NV interval and QTc are a bit long. QRS is normal. Discharge Plan Triage Chief Complaint: Fall ED Provider: Zach Mcdonald Dx/Rx/DC Orders Clinical Impression: Fall at group home, Warfarin-induced coagulopathy Instructions: ED Head Injury (Adult) Prescriptions: No Action multivitamin Tablet 1 tab PO DAILY furosemide [Lasix] 40 mg Tablet 40 mg PO DAILY warfarin [Coumadin] 2.5 mg Tablet 2.5 mg PO QHS spironolactone 25 mg Tablet 12.5 mg PO DAILY nadolol 20 mg Tablet 10 mg PO DAILY pantoprazole [Protonix] 40 mg Tablet,Delayed Release (Dr/Ec) 40 mg PO DAILY ferrous sulfate 325 mg (65 mg iron) Tablet 325 mg PO DAILY sertraline 50 mg Tablet 50 mg PO DAILY [facility]] - Disposition Disposition: [facility]
[2021-11-07 13:53] LABS: Absolute Lymphocyte Count 0.68 X10^3/uL (0.83-4.51); Absolute Neutrophil Count 2.8 X10^3/uL (2.0-7.7); Basophil# 0.02 X10^3/uL; Basophil% 0.5 % (0-1); Eosinophil# 0.06 X10^3/uL; Eosinophils% 1.4 % (0-5); Hematocrit 28.4 % (40-54); Hemoglobin 8.9 g/dL (13.0-16.5); Lymphocyte # 0.68 X10^3/ul (0.83-4.51); Lymphocyte % 15.6 % (19-41); Mean Corp Hgb Conc 31.3 g/dL (32-36); Mean Corpuscular Hgb 28.9 pg (27.0-32.0); Mean Corpuscular Volume 92.2 fL (80-94); Mean Platelet Vol. 10.7 fl (6.2-12.0); Monocyte# 0.78 X10^3/uL; Monocyte% 17.9 % (0-10); NRBC Flagged by Analyzer 0 % (0-5); Neutrophil # 2.81 X10^3/uL (2.7-7.7); Neutrophil % 64.4 % (47-70); Platelet Count 164 K/mm3 (150-450); RBC Distribution Width CV 17.6 % (11.6-14.6); Red Blood Count 3.08 M/mm3 (4.6-6.2); White Blood Count 4.4 K/mm3 (4.4-11.0)
[2021-11-07 14:02] LABS: International Normalized Ratio 2.2; Prothrombin Time (Protime)PT. 24.1 SECONDS (11.7-14.9)
[2021-11-07 14:09] LABS: Anion Gap 4 (5-15); BUN 19 mg/dL (7-18); Calcium,Total 8.7 mg/dL (8.5-10.1); Chloride 110 mmol/L (98-107); Creatinine, Serum 1.12 mg/dL (0.70-1.30); EST Glomerular Filtration Rate 68 mL/min (>60); Est Glom Filt Rate - Afr Amer 83 mL/min (>60); Estimated Creatinine Clearance 54.92 ml/min; Glucose 124 mg/dL (74-106); Potassium 3.5 mmol/L (3.5-5.1); Sodium Level 140 mmol/L (136-145)
[2021-11-07 15:15] VITALS: PULSE 76; RESP 16; O2SAT 99
== END 2021-11-07 16:11 | disposition skilled nursing facility (03) ==
PROVIDERS: Emergency Provider Emergency Medicine; Visit Provider Emergency Medicine
DX: S00.03XA Contusion of scalp, initial encounter (principal); F03.90 Unspecified dementia, unspecified severity, without behavioral disturbance, psychotic disturbance, mood disturbance, and anxiety; J44.9 Chronic obstructive pulmonary disease, unspecified; D68.32 Hemorrhagic disorder due to extrinsic circulating anticoagulants; E11.9 Type 2 diabetes mellitus without complications; E78.5 Hyperlipidemia, unspecified; I10 Essential (primary) hypertension; Z87.891 Personal history of nicotine dependence; F32.A Depression, unspecified; W19.XXXA Unspecified fall, initial encounter; Y92.129 Unspecified place in nursing home as the place of occurrence of the external cause
CPT/HCPCS: 70450; 80048; 85025; 85610; 93005; 99285

== ENCOUNTER → 2021-11-10 | Outpatient (REF) | payer MEDICARE, MEDICAID, SELFPAY ==
[2021-11-10 09:23] LABS: International Normalized Ratio 2.8; Prothrombin Time (Protime)PT. 29.2 SECONDS (11.7-14.9)
[2021-11-10 09:25] LABS: Anion Gap 5 (5-15); BUN 20 mg/dL (7-18); BUN/Creat Ratio 19.2 RATIO (10-20); Calcium,Total 8.2 mg/dL (8.5-10.1); Chloride 108 mmol/L (98-107); Creatinine, Serum 1.04 mg/dL (0.70-1.30); EST Glomerular Filtration Rate 74 mL/min (>60); Est Glom Filt Rate - Afr Amer 90 mL/min (>60); Glucose 102 mg/dL (74-106); Potassium 3.9 mmol/L (3.5-5.1); Sodium Level 139 mmol/L (136-145)
== END ==
LOC: OLS.SW400 05:00
PROVIDERS: Visit Provider Internal Medicine
DX: I48.91 Unspecified atrial fibrillation (principal); J44.9 Chronic obstructive pulmonary disease, unspecified; F03.90 Unspecified dementia, unspecified severity, without behavioral disturbance, psychotic disturbance, mood disturbance, and anxiety; I10 Essential (primary) hypertension; E78.5 Hyperlipidemia, unspecified; Z79.01 Long term (current) use of anticoagulants
CPT/HCPCS: 36415; 80048; 85610

== ENCOUNTER → 2021-11-17 | Outpatient (REF) | payer MEDICARE, MEDICAID, SELFPAY ==
[2021-11-17 09:05] LABS: Prothrombin Time (Protime)PT. 21.9 SECONDS (11.7-14.9)
[2021-11-17 09:07] LABS: Anion Gap 3 (5-15); BUN 16 mg/dL (7-18); BUN/Creat Ratio 18.1 RATIO (10-20); Calcium,Total 8.5 mg/dL (8.5-10.1); Chloride 110 mmol/L (98-107); Creatinine, Serum 0.88 mg/dL (0.70-1.30); EST Glomerular Filtration Rate 90 mL/min (>60); Est Glom Filt Rate - Afr Amer 109 mL/min (>60); Glucose 103 mg/dL (74-106); Potassium 3.8 mmol/L (3.5-5.1); Sodium Level 140 mmol/L (136-145)
== END ==
LOC: OLS.SW400 05:00
PROVIDERS: Visit Provider Internal Medicine
DX: Z79.01 Long term (current) use of anticoagulants (principal)
CPT/HCPCS: 36415; 80048; 85610

== ENCOUNTER → 2021-11-24 | Outpatient (REF) | payer MEDICARE, MEDICAID, SELFPAY ==
[2021-11-24 09:17] LABS: Anion Gap 5 (5-15); BUN 17 mg/dL (7-18); BUN/Creat Ratio 15.3 RATIO (10-20); Chloride 109 mmol/L (98-107); Creatinine, Serum 1.11 mg/dL (0.70-1.30); EST Glomerular Filtration Rate 69 mL/min (>60); Est Glom Filt Rate - Afr Amer 83 mL/min (>60); Glucose 142 mg/dL (74-106); Potassium 3.8 mmol/L (3.5-5.1); Sodium Level 142 mmol/L (136-145)
== END ==
LOC: OLS.SW400 05:00
PROVIDERS: Visit Provider Internal Medicine
DX: K74.60 Unspecified cirrhosis of liver (principal); J44.9 Chronic obstructive pulmonary disease, unspecified; E11.9 Type 2 diabetes mellitus without complications; K75.81 Nonalcoholic steatohepatitis (NASH)
CPT/HCPCS: 36415; 80048

== ENCOUNTER → 2021-12-02 | Outpatient (REF) | payer MEDICARE, MEDICAID, SELFPAY ==
[2021-12-02 11:30] LABS: BUN 14 mg/dL (7-18); Creatinine, Serum 0.87 mg/dL (0.70-1.30); Glucose 97 mg/dL (74-106)
[2021-12-02 11:31] LABS: Anion Gap 9 (5-15); BUN/Creat Ratio 16.1 RATIO (10-20); Calcium,Total 8.1 mg/dL (8.5-10.1); Chloride 108 mmol/L (98-107); EST Glomerular Filtration Rate 91 mL/min (>60); Est Glom Filt Rate - Afr Amer 111 mL/min (>60); Potassium 3.9 mmol/L (3.5-5.1); Sodium Level 141 mmol/L (136-145)
== END ==
LOC: OLS.SW400 05:00
PROVIDERS: Visit Provider Internal Medicine
DX: J44.9 Chronic obstructive pulmonary disease, unspecified (principal); F03.90 Unspecified dementia, unspecified severity, without behavioral disturbance, psychotic disturbance, mood disturbance, and anxiety; E11.9 Type 2 diabetes mellitus without complications; Z79.01 Long term (current) use of anticoagulants
CPT/HCPCS: 36415; 80048

== ENCOUNTER → 2021-12-03 | Outpatient (REF) | payer MEDICARE, MEDICAID, SELFPAY ==
[2021-12-03 08:05] LABS: INR Fingerstick 1.6; Prothrombin Time Fingerstick 19.1 SEC (11.7-14.9)
== END ==
LOC: OLS.SW400 05:00
PROVIDERS: Visit Provider Internal Medicine
DX: F03.90 Unspecified dementia, unspecified severity, without behavioral disturbance, psychotic disturbance, mood disturbance, and anxiety (principal); J44.9 Chronic obstructive pulmonary disease, unspecified; E11.9 Type 2 diabetes mellitus without complications; Z79.01 Long term (current) use of anticoagulants
CPT/HCPCS: 36416; 85610

== ENCOUNTER → 2021-12-08 | Outpatient (REF) | payer MEDICARE, MEDICAID, SELFPAY ==
[2021-12-08 09:18] LABS: Anion Gap 5 (5-15); BUN 17 mg/dL (7-18); BUN/Creat Ratio 15.9 RATIO (10-20); Chloride 112 mmol/L (98-107); Creatinine, Serum 1.07 mg/dL (0.70-1.30); EST Glomerular Filtration Rate 72 mL/min (>60); Est Glom Filt Rate - Afr Amer 87 mL/min (>60); Glucose 130 mg/dL (74-106); Sodium Level 142 mmol/L (136-145)
== END ==
LOC: OLS.SW400 04:00
PROVIDERS: Referring Provider Internal Medicine; Visit Provider Internal Medicine
DX: I10 Essential (primary) hypertension (principal)
CPT/HCPCS: 36415; 80048

== ENCOUNTER → 2021-12-15 | Outpatient (REF) | payer MEDICARE, MEDICAID, SELFPAY ==
[2021-12-15 09:05] LABS: Anion Gap 10 (5-15); BUN 18 mg/dL (7-18); BUN/Creat Ratio 16.7 RATIO (10-20); Calcium,Total 8.6 mg/dL (8.5-10.1); Chloride 104 mmol/L (98-107); Creatinine, Serum 1.08 mg/dL (0.70-1.30); EST Glomerular Filtration Rate 71 mL/min (>60); Est Glom Filt Rate - Afr Amer 86 mL/min (>60); Glucose 165 mg/dL (74-106); Potassium 3.8 mmol/L (3.5-5.1); Sodium Level 137 mmol/L (136-145)
== END ==
LOC: OLS.SW400 05:00
PROVIDERS: Visit Provider Internal Medicine
DX: E11.9 Type 2 diabetes mellitus without complications (principal)
CPT/HCPCS: 36415; 80048

== ENCOUNTER → 2021-12-22 | Outpatient (REF) | payer MEDICARE, MEDICAID, SELFPAY ==
[2021-12-22 09:08] LABS: International Normalized Ratio 2.5
[2021-12-22 09:15] LABS: Anion Gap 6 (5-15); BUN 16 mg/dL (7-18); BUN/Creat Ratio 18.1 RATIO (10-20); Chloride 111 mmol/L (98-107); Creatinine, Serum 0.88 mg/dL (0.70-1.30); EST Glomerular Filtration Rate 90 mL/min (>60); Est Glom Filt Rate - Afr Amer 108 mL/min (>60); Glucose 92 mg/dL (74-106); Potassium 3.9 mmol/L (3.5-5.1); Sodium Level 143 mmol/L (136-145)
== END ==
LOC: OLS.SW400 04:00
PROVIDERS: Referring Provider Internal Medicine; Visit Provider Internal Medicine
DX: Z79.01 Long term (current) use of anticoagulants (principal)
CPT/HCPCS: 36415; 80048; 85610

== ENCOUNTER → 2021-12-24 | Outpatient (REF) | payer MEDICARE, MEDICAID, SELFPAY ==
[2021-12-24 08:35] LABS: INR Fingerstick 1.7
== END ==
LOC: OLS.SW400 05:42
PROVIDERS: Visit Provider Internal Medicine
DX: Z79.01 Long term (current) use of anticoagulants (principal)
CPT/HCPCS: 36416; 85610

== ENCOUNTER → 2021-12-29 | Outpatient (REF) | payer MEDICARE, MEDICAID, SELFPAY ==
[2021-12-29 10:00] LABS: Hematocrit 28.3 % (40-54); Hemoglobin 8.9 g/dL (13.0-16.5); Mean Corp Hgb Conc 31.4 g/dL (32-36); Mean Corpuscular Hgb 29.7 pg (27.0-32.0); Mean Corpuscular Volume 94.3 fL (80-94); Mean Platelet Vol. 12.2 fl (6.2-12.0); Platelet Count 130 K/mm3 (150-450); RBC Distribution Width CV 16.6 % (11.6-14.6); RBC Distribution Width SD 57.7 fl (35.1-43.9); White Blood Count 3.2 K/mm3 (4.4-11.0)
[2021-12-29 10:31] LABS: Anion Gap 6 (5-15); BUN 17 mg/dL (7-18); BUN/Creat Ratio 19.1 RATIO (10-20); Calcium,Total 8.4 mg/dL (8.5-10.1); Chloride 113 mmol/L (98-107); Creatinine, Serum 0.89 mg/dL (0.70-1.30); EST Glomerular Filtration Rate 89 mL/min (>60); Est Glom Filt Rate - Afr Amer 108 mL/min (>60); Glucose 128 mg/dL (74-106); Potassium 3.6 mmol/L (3.5-5.1); Sodium Level 143 mmol/L (136-145)
== END ==
LOC: OLS.SW400 05:00
PROVIDERS: Visit Provider Internal Medicine
DX: E11.9 Type 2 diabetes mellitus without complications (principal); D64.9 Anemia, unspecified
CPT/HCPCS: 36415; 80048; 85027

== ENCOUNTER → 2021-12-31 | Outpatient (REF) | payer MEDICARE, MEDICAID, SELFPAY ==
[2021-12-31 07:20] LABS: INR Fingerstick 1.5; Prothrombin Time Fingerstick 18.3 SEC (11.7-14.9)
== END ==
LOC: OLS.SW400 05:00
PROVIDERS: Visit Provider Internal Medicine
DX: Z79.01 Long term (current) use of anticoagulants (principal)
CPT/HCPCS: 36416; 85610

== ENCOUNTER → 2022-01-05 | Outpatient (REF) | payer MEDICARE, MEDICAID, SELFPAY ==
[2022-01-05 10:24] LABS: Anion Gap 5 (5-15); BUN 17 mg/dL (7-18); BUN/Creat Ratio 19.2 RATIO (10-20); Calcium,Total 8.1 mg/dL (8.5-10.1); Chloride 111 mmol/L (98-107); Creatinine, Serum 0.89 mg/dL (0.70-1.30); EST Glomerular Filtration Rate 89 mL/min (>60); Est Glom Filt Rate - Afr Amer 108 mL/min (>60); Glucose 92 mg/dL (74-106); Potassium 3.3 mmol/L (3.5-5.1); Sodium Level 143 mmol/L (136-145)
== END ==
LOC: OLS.SW400 05:00
PROVIDERS: Visit Provider Internal Medicine
DX: J44.9 Chronic obstructive pulmonary disease, unspecified (principal); K74.60 Unspecified cirrhosis of liver
CPT/HCPCS: 36415; 80048

== ENCOUNTER → 2022-01-07 | Outpatient (REF) | payer MEDICARE, MEDICAID, SELFPAY ==
[2022-01-07 08:35] LABS: INR Fingerstick 1.9; Prothrombin Time Fingerstick 22.1 SEC (11.7-14.9)
== END ==
LOC: OLS.SW400 05:00
PROVIDERS: Visit Provider Internal Medicine
DX: Z79.01 Long term (current) use of anticoagulants (principal)
CPT/HCPCS: 36416; 85610

== ENCOUNTER → 2022-01-12 | Outpatient (REF) | payer MEDICARE, MEDICAID, SELFPAY ==
[2022-01-12 07:57] LABS: Absolute Lymphocyte Count 0.62 X10^3/uL (0.83-4.51); Absolute Neutrophil Count 1.8 X10^3/uL (2.0-7.7); Eosinophil# 0.06 X10^3/uL; Hematocrit 26.9 % (40-54); Hemoglobin 8.6 g/dL (13.0-16.5); Lymphocyte # 0.62 X10^3/ul (0.83-4.51); Lymphocyte % 21.2 % (19-41); Mean Corpuscular Hgb 30.1 pg (27.0-32.0); Mean Corpuscular Volume 94.1 fL (80-94); Mean Platelet Vol. 11.5 fl (6.2-12.0); Monocyte# 0.45 X10^3/uL; Monocyte% 15.4 % (0-10); NRBC Flagged by Analyzer 0 % (0-5); Neutrophil # 1.79 X10^3/uL (2.7-7.7); Neutrophil % 61.1 % (47-70); Platelet Count 115 K/mm3 (150-450); RBC Distribution Width CV 16.4 % (11.6-14.6); RBC Distribution Width SD 57.6 fl (35.1-43.9); Red Blood Count 2.86 M/mm3 (4.6-6.2); White Blood Count 2.9 K/mm3 (4.4-11.0)
[2022-01-12 08:23] LABS: ALB/GLOB Ratio 0.5 RATIO (0.9-2.4); AST(SGOT) 26 U/L (15-37); Alanine Aminotransfer ALT/SGPT 17 U/L (16-61); Albumin, Serum 1.7 g/dL (3.2-5.0); Alkaline Phosphatase 148 U/L (45-117); Anion Gap 7 (5-15); BUN 15 mg/dL (7-18); BUN/Creat Ratio 17.1 RATIO (10-20); Calcium,Total 7.9 mg/dL (8.5-10.1); Chloride 110 mmol/L (98-107); Creatinine, Serum 0.88 mg/dL (0.70-1.30); EST Glomerular Filtration Rate 91 mL/min (>60); Est Glom Filt Rate - Afr Amer 110 mL/min (>60); Globulin 3.5 g/dL (2.2-4.2); Glucose 100 mg/dL (74-106); Potassium 3.8 mmol/L (3.5-5.1); Protein, Total 5.2 g/dL (6.4-8.2); Sodium Level 143 mmol/L (136-145)
== END ==
LOC: OLS.SW400 04:00
PROVIDERS: Referring Provider Internal Medicine; Visit Provider Internal Medicine
DX: K74.60 Unspecified cirrhosis of liver (principal)
CPT/HCPCS: 36415; 80053; 82248; 85025

== ENCOUNTER → 2022-01-14 | Outpatient (REF) | payer SELFPAY ==
[2022-01-14 07:55] LABS: INR Fingerstick 1.8; Prothrombin Time Fingerstick 21.9 SEC (11.7-14.9)
== END ==
LOC: OLS.SW400 05:00
PROVIDERS: Visit Provider Family Medicine
DX: Z79.01 Long term (current) use of anticoagulants (principal)
CPT/HCPCS: 36416; 85610

== ENCOUNTER 2022-01-15 11:25 | Inpatient (IN) | payer MEDICARE, MEDICAID, SELFPAY ==
[2022-01-15] VITALS (9 sets, daily range): BP systolic 88–112; BP diastolic 48–66; PULSE 51–60; RESP 12–18; TEMP 35.9–36.6; O2SAT 95–99; BMI 27.2; BMI 25.7
--- NOTE | 2022-01-15 11:42 | VDLE_ITS ---
Reason For Study: swelling RIGHT LEFT GSV is normal. GSV is normal. CFV is compressible, spontaneous, phasic, CFV is compressible, spontaneous, phasic, competent and demonstrates normal competent, and demonstrates normal augmentation. augmentation. FV is compressible, spontaneous, phasic, FV is compressible, spontaneous, phasic, competent and demonstrates normal competent and demonstrates normal augmentation. augmentation. POP V is compressible, spontaneous, phasic, POP V is compressible, spontaneous, phasic, competent and demonstrates normal competent and demonstrates normal augmentation. augmentation. T/P Trunk is compressible. T/P Trunk is compressible. PTV is compressible. PTV is compressible. RT PerV is compressible. LT PerV is compressible. Procedure This is a venous duplex using B-mode, color flow and spectral Doppler. Exam performed portable in ED. The exam was diagnostic. A preliminary report was called and/or faxed to the pt's RN and Dr. Cochran. VL/Venous Duplex US - Ralf Extrem Interpretation Summary Deep veins of the bilateral lower extremities are patent and compressible segme ntally. There is no evidence of bilateral lower extremity deep vein thrombosis. The bilateral great saphenous veins appear patent and compressible segmentally. Ordering Physician: Mike Cochran Performed By: Martinez Cunningham RVT
--- NOTE | 2022-01-15 11:42 | EKG12_ITS ---
Test Reason : LOW HR Blood Pressure : / mmHG Vent. Rate : 051 BPM Atrial Rate : 000 BPM P-R Int : 000 ms QRS Dur : 092 ms QT Int : 518 ms P-R-T Axes : 000 -30 001 degrees QTc Int : 477 ms Sinus vs Ectopic Atrial Bradycardia Left axis deviation Low voltage QRS Poor R wave progression Abnormal ECG Confirmed by DEREK GARCIA, MIKAL ([id number]), film or videotape editor AL CAMPA ([id number]) on 01/19/2022 9:43:15 AM Referred By: LEE ANN Confirmed By:MIKAL REED MD
--- NOTE | 2022-01-15 11:43 | CT_ITS ---
STUDY: CT CERVICAL SPINE WITHOUT CONTRAST REASON FOR EXAM: Male, 71 years old. Headache and neck pain after trauma RADIATION DOSAGE (If Supplied By Facility): CTDIvol = ( 24.17 ) mGy, DLP = ( 458.08 ) mGycm TECHNIQUE: High resolution transaxial imaging was performed without contrast material. Sagittal and coronal images were reconstructed. Individualized dose optimization techniques were used for this CT. COMPARISON: None FINDINGS: Normal craniovertebral junction. There are degenerative changes of the anterior atlantoaxial articulation. Normal odontoid process. There is straightening of the normal cervical lordosis. Bones are demineralized, no demonstrated fracture C2-3: Normal endplates. Disc space narrowing.. Normal central canal and intervertebral neuroforamina. C3-4: Normal endplates. Disc space narrowing.. Normal central canal and intervertebral neuroforamina. C4-5: Normal endplates. Disc space narrowing with small uncovertebral spurs.. Normal central canal and intervertebral neuroforamina. C5-6: Normal endplates. Disc space narrowing with uncovertebral spurs, no central canal stenosis, there is bilateral foraminal narrowing due to facet joint hypertrophy. C6-7: Normal endplates. Disc space narrowing with uncovertebral spurs, no central canal stenosis, there is bilateral foraminal narrowing due to facet joint hypertrophy. C7-T1: Normal endplates. Disc space narrowing.. Normal central canal and intervertebral neuroforamina. Normal visualized soft tissue structures. CT/Spine Cervical without Contras IMPRESSION: Multilevel degenerative changes, as described above. Electronically Signed: Davy Springer MD at 12:27 EDT ,
--- NOTE | 2022-01-15 11:43 | CT_ITS ---
STUDY: CT BRAIN WITHOUT CONTRAST REASON FOR EXAM: Male, 71 years old. Headache after a fall RADIATION DOSAGE (If Supplied By Facility): CTDIvol = ( 44.99 ) mGy, DLP = ( 829.85 ) mGycm TECHNIQUE: Transaxial CT imaging of the brain was performed without administration of intravenous contrast material. Individualized dose optimization techniques were used for this CT. COMPARISON: No relevant priors. FINDINGS: Normal soft tissue structures. Normal calvarium. There is mild cerebral atrophy with widening of the extra-axial spaces and ventricular dilatation. There are areas of decreased attenuation within the white matter tracts of the supratentorial brain, consistent with microvascular disease changes. Normal basal ganglia and thalami. Normal brainstem. Normal cerebellum. There is no intracranial hemorrhage. There are no findings of an acute ischemic infarction. Normal visualized paranasal sinuses. CT/Brain/Head without Contrast IMPRESSION: Chronic involutional changes of the brain. No acute hemorrhage Electronically Signed: Davy Springer MD at 12:23 EDT ,
--- NOTE | 2022-01-15 11:50 | EX.ED.DYSGE1 ---
HPI History of Present Illness Chief Complaint: Alt LOC Informant: family and EMS Narrative Narrative: Sent from [facility] for evaluation concerns for increasing altered mental status. History of Alzheimer's dementia. Granddaughter present who works in health field. States he has been there for months. Patient supposed to walk walker. He had a fall 11 days ago. He is a diabetic. Patient denies any symptoms. Reported increasing leg swelling decreased urine output to nursing from facility. Baseline alert and oriented to person. Prior similar symptoms: Yes PFSH PFSH Medical History COPD (chronic obstructive pulmonary disease) Dementia Depression Hearing loss HLD (hyperlipidemia) HTN (hypertension) MENDOZA (nonalcoholic steatohepatitis) Type 2 diabetes mellitus Home Medications ferrous sulfate 325 mg (65 mg iron) tablet 325 mg PO DAILY supplement 11/07/21 [History Last Taken 01/15/22] multivitamin 1 tab PO DAILY supplement 11/07/21 [History Last Taken 01/15/22] nadolol 20 mg tablet 20 mg PO QHS 11/07/21 [History Last Taken 01/14/22] pantoprazole 40 mg tablet,delayed release (Protonix) 40 mg PO DAILY GERD 11/07/21 [History Last Taken 01/15/22] sertraline 50 mg tablet 50 mg PO DAILY DEPRESSION 11/07/21 [History Last Taken 01/15/22] spironolactone 25 mg tablet 12.5 mg PO DAILY 11/07/21 [History Last Taken 01/15/22] warfarin 2.5 mg tablet 2.5 mg PO SUSA 11/07/21 [History Last Taken 01/11/22] acetaminophen 325 mg tablet 650 mg PO Q4H PRN Pain 01/15/22 [History Last Taken 01/04/22] acetaminophen 500 mg tablet 1,000 mg PO DAILY pain 01/15/22 [History Last Taken 01/15/22] fludrocortisone 0.1 mg tablet 0.2 mg PO BREAKFAST HYPOTENSION 01/15/22 [History Last Taken 01/15/22] furosemide 40 mg tablet (Lasix) 40 mg PO DAILY edema 01/15/22 [History Last Taken 01/15/22] nutrition tx glu intol,lac-free,soy-fiber 0.06 gram-1.1 kcal/mL liquid (Boost Glucose Control) 237 ml PO QHS supplement 10/20/22 [History Last Taken 01/14/22] potassium chloride 20 mEq tablet,extended release(part/cryst) (Klor-Con M) 20 meq PO DAILY supplement 01/15/22 [History Last Taken 01/15/22] warfarin 2 mg tablet 2 mg PO MOTUWETHFR 01/15/22 [History Last Taken 01/14/22] Allergy/AdvReac Type Severity Reaction Status Date / Time No Known Allergies Allergy Verified 01/15/22 11:27 Social History Smoking Status: Former smoker ROS ROS ED Constitutional Constitutional ED: Denies chills, fever(s) or sweats Eyes Eyes: Denies change in vision ENT ENT ED: Denies dysphagia or sore throat Cardiovascular Cardiovascular: Denies chest pain, leg edema, palpitations or racing heartbeat Respiratory/Chest Respiratory/Chest: Denies cough, dyspnea or dyspnea on exertion Gastrointestinal Gastrointestinal: Denies abdominal pain, diarrhea, nausea or vomiting Genitourinary Genitourinary ED: Denies dysuria, hematuria or urinary frequency Musculoskeletal Musculoskeletal: Denies back pain, extremity pain or neck pain Integumentary Denies rash or wounds Neurologic Neurologic: Denies headache(s), paresthesias or weakness EXAM Physical Exam Const Vital Signs: 01/15/22 11:27 01/15/22 11:39 01/15/22 13:26 Temperature 96.7 F L Temperature Source Temporal Pulse Rate 60 51 L Respiratory Rate 16 12 Respiratory Effort Normal Non-Labored Respiratory Pattern Normal Blood Pressure 112/61 101/55 L Blood Pressure Mean 78 70 Pulse Ox 97 99 Oxygen Delivery Method Room Air Room Air Positive well nourished and well developed Constitutional Narrative: Nontoxic General Appearance ED: well developed and NAD HEENT Reports moist mucous membranes normocephalic and atraumatic Eyes PERRL, EOMs intact bilaterally and conjunctivae normal General Eye ED: Yes normal appearance of both eyes Neck no lymphadenopathy and supple General: Negative for tenderness Chest Wall Chest: Negative for tenderness Resp normal respiratory effort and normal air movement Effort and Inspection: symmetric chest movement; Negative for respiratory distress Cardio regular rate, regular rhythm and no murmurs Peripheral Pulses: pulses 2+ throughout GI normal to inspection, nondistended, normoactive bowel sounds and non-tender Palpation: Negative for guarding or rebound tenderness present Back/Spine no CVA tenderness and no thoracic nor lumbar tenderness Extremity normal to inspection Extremity Narrative: Minimal lower extremity edema. General Extremety ED: Yes edema; Negative for tenderness General Extremity: edema Neuro no sensory deficits noted Neuro Narrative: Alert to person, thought his granddaughter was his daughter. Sensorium / Orientation: awake and alert Skin no rashes or lesions noted and no wounds MDM MDM MDM Narrative Medical decision making narrative: Vital stable nontoxic reported altered mental status with increasing leg swelling decreased urine output. Reported fall from granddaughter 11 days ago. From medication he is on warfarin. Trauma scans head and neck ordered chest x-ray labs and urine along with Doppler ultrasounds of the lower extremity. 1304: CT head and neck negative. Creatinine 0.97. Potassium 4.0. COVID-negative. INR 2.1 therapeutic. White count 2.5 hemoglobin 9 platelets 109.. Have a trend that is been going down the last few months. His recent hemoglobins have been in the 8 range. Chest x-ray reviewed by myself and read by radiology potential left lingula infiltrate. Daughter is now present, he has been at the facility for 4 to 5 months. He had concerning pneumonia on initial chest x-ray monitored recheck persistent he was on antibiotics. He has occasional cough however none recently had a remote tobacco history. 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 He is on the nadolol and spironolactone for this. Reported recently saw abdominal swelling leg swelling and he was off spironolactone since then has been restarted. Leg ultrasounds are still pending. He is not at his baseline is DNR CCA. I will add an ammonia level. Discussed the pancytopenia with daughter, states did not want any aggressive work-up at this time. Ammonia levels returned at 59. Urine negative. He is ordered for oral lactulose. I discussed with hospitalist service Dr. Lacey for admission. Ultrasound lower extremities were negative for any DVT. Lab Data Attestation: I reviewed the patient's lab results. Labs: Laboratory Results - last 24 hr 01/15/22 01/15/22 01/15/22 11:35 11:35 11:35 WBC 2.5 L RBC 3.07 L Hgb 9.0 L Hct 29.3 L MCV 95.4 H MCH 29.3 MCHC 30.7 L RDW Std Deviation 58.6 H RDW Coeff of Bradley 16.8 H Plt Count 109 L MPV 11.8 Immature Gran % (Auto) 0.400 Neut % (Auto) 63.4 Lymph % (Auto) 19.3 [place] % (Auto) 14.1 H Eos % (Auto) 2.4 Baso % (Auto) 0.4 Absolute Neuts (auto) 1.6 L Absolute Lymphs (auto) 0.48 L Nucleated RBC % 0 Differential Comment COMMENT Diff Path Review July foll PT 23.2 H INR 2.1 Sodium 144 Potassium 4.0 Chloride 114 H Carbon Dioxide 26.0 Anion Gap 4 L BUN 15 Creatinine 0.97 Estim Creat Clear Calc 63.41 Est GFR (MDRD) Af Amer 97 Est GFR (MDRD) Non-Af 80 BUN/Creatinine Ratio 15.4 Glucose 161 H Calcium 8.2 L Phosphorus Magnesium Total Bilirubin 1.10 H AST 27 ALT 19 Alkaline Phosphatase 174 H Ammonia Total Protein 5.7 L Albumin 1.8 L Globulin 3.9 Albumin/Globulin Ratio 0.5 L Urine Color Urine Clarity Urine pH Ur Specific Foley Urine Protein Urine Glucose (UA) Urine Ketones Urine Occult Blood Urine Nitrite Urine Bilirubin Urine Urobilinogen Ur Leukocyte Esterase Urine RBC Urine WBC Ur Squamous Epith Cells Urine Bacteria Urine Mucus POC Glucose 01/15/22 01/15/22 01/15/22 11:35 12:01 12:55 WBC RBC Hgb Hct MCV MCH MCHC RDW Std Deviation RDW Coeff of Bradley Plt Count MPV Immature Gran % (Auto) Neut % (Auto) Lymph % (Auto) [place] % (Auto) Eos % (Auto) Baso % (Auto) Absolute Neuts (auto) Absolute Lymphs (auto) Nucleated RBC % Differential Comment Diff Path Review PT INR Sodium Potassium Chloride Carbon Dioxide Anion Gap BUN Creatinine Estim Creat Clear Calc Est GFR (MDRD) Af Amer Est GFR (MDRD) Non-Af BUN/Creatinine Ratio Glucose Calcium Phosphorus 2.6 Magnesium 2.2 Total Bilirubin AST ALT Alkaline Phosphatase Ammonia Total Protein Albumin Globulin Albumin/Globulin Ratio Urine Color Yellow Urine Clarity Clear Urine pH 6.5 Ur Specific Foley 1.010 Urine Protein Negative Urine Glucose (UA) Normal Urine Ketones Negative Urine Occult Blood 10 H Urine Nitrite Negative Urine Bilirubin Negative Urine Urobilinogen 8 H Ur Leukocyte Esterase Negative Urine RBC 0 SEEN Urine WBC 0 SEEN Ur Squamous Epith Cells 0 SEEN Urine Bacteria 0 SEEN Urine Mucus 0 SEEN POC Glucose 144 H 01/15/22 13:10 WBC RBC Hgb Hct MCV MCH MCHC RDW Std Deviation RDW Coeff of Bradley Plt Count MPV Immature Gran % (Auto) Neut % (Auto) Lymph % (Auto) [place] % (Auto) Eos % (Auto) Baso % (Auto) Absolute Neuts (auto) Absolute Lymphs (auto) Nucleated RBC % Differential Comment Diff Path Review PT INR Sodium Potassium Chloride Carbon Dioxide Anion Gap BUN Creatinine Estim Creat Clear Calc Est GFR (MDRD) Af Amer Est GFR (MDRD) Non-Af BUN/Creatinine Ratio Glucose Calcium Phosphorus Magnesium Total Bilirubin AST ALT Alkaline Phosphatase Ammonia 59.0 H Total Protein Albumin Globulin Albumin/Globulin Ratio Urine Color Urine Clarity Urine pH Ur Specific Foley Urine Protein Urine Glucose (UA) Urine Ketones Urine Occult Blood Urine Nitrite Urine Bilirubin Urine Urobilinogen Ur Leukocyte Esterase Urine RBC Urine WBC Ur Squamous Epith Cells Urine Bacteria Urine Mucus POC Glucose Radiography Diagnostic Testing: Clinical Impression(s) from Imaging Studies Venous Doppler Study 01/15/22 11:42 Interpretation Summary Deep veins of the bilateral lower extremities are patent and compressible segmentally. There is no evidence of bilateral lower extremity deep vein thrombosis. The bilateral great saphenous veins appear patent and compressible segmentally. Ordering Physician: Miek Cochran Performed By: Martinez Cunningham, RVT Brain CT 01/15/22 11:43 IMPRESSION: Chronic involutional changes of the brain. No acute hemorrhage Electronically Signed: Davy Springer MD at 12:23 EDT , Cervical Spine CT 01/15/22 11:43 IMPRESSION: Multilevel degenerative changes, as described above. Electronically Signed: Davy Springer MD at 12:27 EDT , Chest X-Ray 01/15/22 12:20 IMPRESSION: Likely lingular infiltrate with associated atelectasis and effusion. Follow-up recommended to assure resolution Electronically Signed: Davy Springer MD at 12:35 EDT , EKG Initial EKG: Attestation: I personally reviewed and interpreted this EKG as follows: Comments: Sinus rate of 51, no ST changes T wave version leads III nonspecific. Discharge Plan Dx/Rx/DC Orders Clinical Impression: Encephalopathy acute, Liver cirrhosis secondary to MENDOZA, Alzheimer's dementia, Anemia, Pancytopenia Disposition Disposition: Acute Care Hospital [facility] Discharge Date/Time: 01/15/22 14:45
[2022-01-15 12:07] LABS: Absolute Lymphocyte Count 0.48 X10^3/uL (0.83-4.51); Absolute Neutrophil Count 1.6 X10^3/uL (2.0-7.7); Basophil# 0.01 X10^3/uL; Basophil% 0.4 % (0-1); Eosinophil# 0.06 X10^3/uL; Eosinophils% 2.4 % (0-5); Hematocrit 29.3 % (40-54); Lymphocyte # 0.48 X10^3/ul (0.83-4.51); Lymphocyte % 19.3 % (19-41); Mean Corp Hgb Conc 30.7 g/dL (32-36); Mean Corpuscular Hgb 29.3 pg (27.0-32.0); Mean Corpuscular Volume 95.4 fL (80-94); Mean Platelet Vol. 11.8 fl (6.2-12.0); Monocyte# 0.35 X10^3/uL; Monocyte% 14.1 % (0-10); NRBC Flagged by Analyzer 0 % (0-5); Neutrophil # 1.58 X10^3/uL (2.7-7.7); Neutrophil % 63.4 % (47-70); POSITIVE DIFFERENTIAL YES; Platelet Count 109 K/mm3 (150-450); RBC Distribution Width CV 16.8 % (11.6-14.6); RBC Distribution Width SD 58.6 fl (35.1-43.9); Red Blood Count 3.07 M/mm3 (4.6-6.2); White Blood Count 2.5 K/mm3 (4.4-11.0)
[2022-01-15 12:10] LABS: International Normalized Ratio 2.1; Prothrombin Time (Protime)PT. 23.2 SECONDS (11.7-14.9)
[2022-01-15 12:11] LABS: ALB/GLOB Ratio 0.5 RATIO (0.9-2.4); AST(SGOT) 27 U/L (15-37); Alanine Aminotransfer ALT/SGPT 19 U/L (16-61); Albumin, Serum 1.8 g/dL (3.2-5.0); Alkaline Phosphatase 174 U/L (45-117); Anion Gap 4 (5-15); BUN 15 mg/dL (7-18); BUN/Creat Ratio 15.4 RATIO (10-20); Calcium,Total 8.2 mg/dL (8.5-10.1); Chloride 114 mmol/L (98-107); Creatinine, Serum 0.97 mg/dL (0.70-1.30); EST Glomerular Filtration Rate 80 mL/min (>60); Est Glom Filt Rate - Afr Amer 97 mL/min (>60); Estimated Creatinine Clearance 63.41 ml/min; Globulin 3.9 g/dL (2.2-4.2); Glucose 161 mg/dL (74-106); Protein, Total 5.7 g/dL (6.4-8.2); Sodium Level 144 mmol/L (136-145)
--- NOTE | 2022-01-15 12:20 | RAD_ITS ---
STUDY: X-RAY CHEST REASON FOR EXAM: Male, 71 years old. Cough, confusion TECHNIQUE: PA and lateral views of the chest. COMPARISON: None. FINDINGS: EKG leads overlie the chest Lungs are underexpanded, right lung shows chronic interstitial changes but is otherwise clear. There is a lingular opacification suggests likely infiltrate with associated effusion. Follow-up recommended to assure resolution Normal size heart. Normal mediastinum and didier. Normal visualized pulmonary arteries. Normal visualized aortic arch and descending thoracic aorta. Normal visualized thoracic spine. Normal visualized ribs, clavicles, and shoulders. There is no demonstrated abnormality of the visualized soft tissue structures of the upper abdomen. RAD/Chest PA and Lateral IMPRESSION: Likely lingular infiltrate with associated atelectasis and effusion. Follow-up recommended to assure resolution Electronically Signed: Davy Springer MD at 12:35 EDT ,
[2022-01-15 12:39] LABS: Differential Indicated SCAN CRITERIA MET
[2022-01-15 13:02] LABS: Bacteria 0 SEEN /hpf (None Seen); Mucous, Urine 0 SEEN /hpf (<or=2+); Red Blood Cells-Urine 0 SEEN /hpf (0-5); Squamous Epithelial Cells - UA 0 SEEN /hpf (0-5); White Blood Cells 0 SEEN /hpf (0-5)
[2022-01-15 13:04] LABS: Color, Urine Yellow (Yellow); Glucose, Dipstick Normal (Normal); Ketone-Dipstick Negative (Negative); Leukocyte Esterase-Dipstick Negative /ul (Negative); Nitrite-Dipstick Negative (Negative); Occult Blood-Urine 10 /ul (Negative); Protein-Dipstick Negative (Negative); Urine Bilirubin Dipstick Negative (Negative); Urine Clarity Clear (Clear); Urine Urobilinogen 8 mg/dl (Normal); Urine pH 6.5 (5.0 - 8.0)
[2022-01-15 13:16] LABS: Bedside Glucose 144 mg/dL (74-106)
--- NOTE | 2022-01-15 14:13 | PCM.HP.STD ---
HPI - General General Date of Admission: 01/15/22 Date of Service: 01/15/22 Chief Complaint: Declining mental status and general health, fall, failure to thrive for several weeks acutely for 2 to 3 days HPI Narrative LEONOR JO, is a 71 M with multiple comorbidities including Call cirrhosis and dementia, brought to ED from [facility] by EMS for evaluation of altered mental status. History is mainly gathered from patient's daughter, Mrs. Chino who is power of district attorney for health near the bedside. Patient himself can only tell his name but not date of , age, month or year, place. As per nursing report, patient has been doing face and legs decreased urine output, lethargy and slow to respond with hypotension. EMS vital shows heart rate 56, BP 105/57, GCS 4 5 6. Patient's baseline is that he is able to take care of himself but as per the daughter he is on walker and is what he needs 1 person assist with standby. He also history of multiple falls. To me patient has mild leg swelling but not facial swelling. Lower extremity venous duplex is negative for acute DVT. Chest x-ray individually reviewed shows chronic interstitial changes. Has a lingular opacification probably atelectasis, infiltrate with associated effusion. As per patient's daughter he does not have cough, fever, tachypnea or sputum production. He is not vaccinated with COVID. Brain and cervical spine CT shows chronic changes. In ED, patient's vital in systolic 101-110. Heart rate, 53 Lab work reviewed and discussed in detail in assessment plan. [facility] Medical History COPD (chronic obstructive pulmonary disease) Dementia Depression Hearing loss HLD (hyperlipidemia) HTN (hypertension) CALL (nonalcoholic steatohepatitis) Type 2 diabetes mellitus Home Medications ferrous sulfate 325 mg (65 mg iron) tablet 325 mg PO DAILY supplement 11/07/21 [History Last Taken 01/15/22] multivitamin 1 tab PO DAILY supplement 11/07/21 [History Last Taken 01/15/22] nadolol 20 mg tablet 20 mg PO QHS 11/07/21 [History Last Taken 01/14/22] pantoprazole 40 mg tablet,delayed release (Protonix) 40 mg PO DAILY GERD 11/07/21 [History Last Taken 01/15/22] sertraline 50 mg tablet 50 mg PO DAILY DEPRESSION 11/07/21 [History Last Taken 01/15/22] spironolactone 25 mg tablet 12.5 mg PO DAILY 11/07/21 [History Last Taken 01/15/22] warfarin 2.5 mg tablet 2.5 mg PO SUSA 11/07/21 [History Last Taken 01/11/22] acetaminophen 325 mg tablet 650 mg PO Q4H PRN Pain 01/15/22 [History Last Taken 01/04/22] acetaminophen 500 mg tablet 1,000 mg PO DAILY pain 01/15/22 [History Last Taken 01/15/22] fludrocortisone 0.1 mg tablet 0.2 mg PO BREAKFAST HYPOTENSION 01/15/22 [History Last Taken 01/15/22] furosemide 40 mg tablet (Lasix) 40 mg PO DAILY edema 01/15/22 [History Last Taken 01/15/22] nutrition tx glu intol,lac-free,soy-fiber 0.06 gram-1.1 kcal/mL liquid (Boost Glucose Control) 237 ml PO QHS supplement 01/15/22 [History Last Taken 01/14/22] potassium chloride 20 mEq tablet,extended release(part/cryst) (Klor-Con M) 20 meq PO DAILY supplement 01/15/22 [History Last Taken 01/15/22] warfarin 2 mg tablet 2 mg PO MOTUWETHFR 01/15/22 [History Last Taken 01/14/22] Allergy/AdvReac Type Severity Reaction Status Date / Time No Known Allergies Allergy Verified 01/15/22 11:27 Social History Smoking Status: Former smoker ROS ROS Narrative 14 system ROS unobtainable as patient has dementia, confusion with altered mental status. As per the daughter, he had mild heart attack in the past. He was getting care mainly through [facility] but he did not go there anymore. About a year ago, he had abdominal surgery with bowel resection seems most likely to be ischemic because and at that time liver looked cirrhotic. Surgeon did not do liver biopsy because of high risk of bleeding. Daughter denies persistent use of alcohol. He was occasional drinker. Cirrhosis probably due to CALL. Patient himself denies burning micturition but has decreased urine output. Recurrent fall. Needs 1 person standby or assist even on walker. Review of Systems ROS Unobtainable: due to encephalopathy, due to mental condition and due to mental status Vital Signs Vital Signs Vital Signs: 01/15/22 11:27 01/15/22 11:39 01/15/22 13:26 Temperature 96.7 F L Temperature Source Temporal Pulse Rate 60 51 L Respiratory Rate 16 12 Respiratory Effort Normal Non-Labored Respiratory Pattern Normal Blood Pressure 112/61 101/55 L Blood Pressure Mean 78 70 Pulse Ox 97 99 Oxygen Delivery Method Room Air Room Air Weight Weight: 173 lb 15.115 oz Body Mass Index (BMI) 27.2 Physical Exam Narrative General: Awake, oriented x1. BMI 27.2 kg/m?, looks dehydrated HEENT: Atraumatic, PERRLA, EOMI, Normocephalic, hard of hearing/hearing impaired Oral: Oral mucosa dry. No Gingival or Mucosal Lesions/ Ulcerations Neck: Supple, No JVD, Negative Carotid Bruits Lungs: Air entry diminished in bilateral lung bases, more on left lung base. No crepitation/rhonchi Cardiovascular: Bradycardia , Normal S1, Normal S2, No murmurs Abdomen: Lower midline surgical scar bowel Sounds Present, Soft, Non Tender, Non-Distended : No renal angle tenderness. No suprapubic tenderness. Extremities: 1-2+ pedal edema, Capillary Refill Less than 3 Seconds Skin: No rashes, No breakdown Musculoskeletal: Muscle strength 4/5 at major joints at knee and hip joints. Decreased muscle bulk, moderate muscle atrophy. No tenderness. Neurological: Left-sided facial droop. DTR 2+. Detailed neuro exam unobtainable. Only follows simple command but not complex. Psych/Mental Status: Flat affect. Results Lab / Micro Data Result Diagrams: 01/15/22 11:35 01/15/22 11:35 Labs: Laboratory Results - last 24 hr 01/15/22 11:35: WBC 2.5 L, RBC 3.07 L, Hgb 9.0 L, Hct 29.3 L, MCV 95.4 H, MCH 29.3, MCHC 30.7 L, RDW Std Deviation 58.6 H, RDW Coeff of [place] 16.8 H, Plt Count 109 L, MPV 11.8, Immature Gran % (Auto) 0.400, Neut % (Auto) 63.4, Lymph % (Auto) 19.3, [place] % (Auto) 14.1 H, Eos % (Auto) 2.4, Baso % (Auto) 0.4, Absolute Neuts (auto) 1.6 L, Absolute Lymphs (auto) 0.48 L, Nucleated RBC % 0, Differential Comment COMMENT, Diff Path Review July01/15/22 11:35: Sodium 144, Potassium 4.0, Chloride 114 H, Carbon Dioxide 26.0, Anion Gap 4 L, BUN 15, Creatinine 0.97, Estim Creat Clear Calc 63.41, Est GFR (MDRD) Af Amer 97, Est GFR (MDRD) Non-Af 80, BUN/Creatinine Ratio 15.4, Glucose 161 H, Calcium 8.2 L, Total Bilirubin 1.10 H, AST 27, ALT 19, Alkaline Phosphatase 174 H, Total Protein 5.7 L, Albumin 1.8 L, Globulin 3.9, Albumin/Globulin Ratio 0.5 L 01/15/22 11:35: PT 23.2 H, INR 2.1 01/15/22 12:01: POC Glucose 144 H 01/15/22 12:55: Urine Color Yellow, Urine Clarity Clear, Urine pH 6.5, Ur Specific [place] 1.010, Urine Protein Negative, Urine Glucose (UA) Normal, Urine Ketones Negative, Urine Occult Blood 10 H, Urine Nitrite Negative, Urine Bilirubin Negative, Urine Urobilinogen 8 H, Ur Leukocyte Esterase Negative, Urine RBC 0 SEEN, Urine WBC 0 SEEN, Ur Squamous Epith Cells 0 SEEN, Urine Bacteria 0 SEEN, Urine Mucus 0 SEEN 01/15/22 13:10: Ammonia 59.0 H Micro: Microbiology 01/15/22 12:07 Nasal Secretion SARS-CoV-2 Antigen (Rapid) - Final Radiology Impression Venous Doppler Study 01/15/22 11:42 Interpretation Summary Deep veins of the bilateral lower extremities are patent and compressible segmentally. There is no evidence of bilateral lower extremity deep vein thrombosis. The bilateral great saphenous veins appear patent and compressible segmentally. Ordering Physician: Mike Cochran Performed By: Martinez Cunningham RVT Brain CT 01/15/22 11:43 IMPRESSION: Chronic involutional changes of the brain. No acute hemorrhage Electronically Signed: Davy Springer MD at 12:23 EDT , Cervical Spine CT 01/15/22 11:43 IMPRESSION: Multilevel degenerative changes, as described above. Electronically Signed: Davy Springer MD at 12:27 EDT , Chest X-Ray 01/15/22 12:20 IMPRESSION: Likely lingular infiltrate with associated atelectasis and effusion. Follow-up recommended to assure resolution Electronically Signed: Davy Springer MD at 12:35 EDT , Assessment & Plan Assessment/Plan (1) Encephalopathy acute: PLAN: Plan This is 71-year-old male was brought by EMS for altered mental status with history of Call cirrhosis and dementia 1. Acute/subacute toxic metabolic encephalopathy with history of Call cirrhosis and dementia: Patient is being admitted on monitored floor because of low BP in ED. Blood pressure is getting better. Patient looks dehydrated therefore IV fluid Ringer lactate 75 mill per hour for 1 L and then reevaluate. Lactulose ordered. Patient ammonia level is elevated but it is not specific for hepatic encephalopathy. Vitamin B12, TSH and vitamin D ordered for tomorrow AM. Monitor intake and output. 2. Adult failure to thrive, recurrent fall and physical and mental debility: PT and OT ordered. Time Buyer in case repairer consult. I talked about palliative care consult and daughter will think about it. 3. Decompensated Call cirrhosis with mild pancytopenia and hepatic encephalopathy: All 3 cell lines are decreased. H&H 9.0/30%, platelet count 109,000, WBC 2.5 thousand as it slowly declined from last 2 to 3 months. Patient is on warfarin. Resume furosemide and spironolactone from tomorrow AM. Nadolol 20 mg nightly. 4. COPD: Patient is not tachypneic or hypoxic or has acute symptoms. DuoNeb as needed. Incentive spirometry. Patient does not have symptoms of pneumonia therefore would not to start antibiotic. 5. Diabetes mellitus type 2: Glucose 144 in Accu-Cheks and 161 in BMP. Accu-Cheks and coverage below sliding scale. Patient has decreased appetite related to altered mental status and dementia. 6. Other comorbidities include dementia, hypertension, dyslipidemia: Hold antihypertensive and diuretic medications as patient blood pressure on lower side. Home medication reconciliation done. Patient is on warfarin 2 mg daily. VTE prophylaxis, high risk: Patient on warfarin low-dose with INR therapeutic. Continued. On review of previous EKG patient is sinus rhythm but patient had a stroke in the past with mild left-sided facial droop. Probably he might have paroxysmal A. fib. Monitor INR daily Living will/advanced directive/end of life care: Patient does have living will or advanced directive. His power of district attorney for health is patient's daughter, Mrs. Chino. I spoke to her. After discussion of benefits/risks procedures involved with full code, DNR CC arrest and DNR CC, Mrs. Chino opted for DNRCC arrest with no intubation. POA does not want artificial life support including intubation, tube feed, ventilator and/chest compression, central venous catheter, vasopressor and DC shock if needed, as per patient's wishes Total time spent in [id number] encounter in discussion of advanced directive 16 minutes. Microbiology Past 72 Hours 01/15/22 12:07 Nasal Secretion SARS-CoV-2 Antigen (Rapid) - Final Laboratory Results 01/15/22 11:35: WBC 2.5 L, RBC 3.07 L, Hgb 9.0 L, Hct 29.3 L, MCV 95.4 H, MCH 29.3, MCHC 30.7 L, RDW Std Deviation 58.6 H, RDW Coeff of [place] 16.8 H, Plt Count 109 L, MPV 11.8, Immature Gran % (Auto) 0.400, Neut % (Auto) 63.4, Lymph % (Auto) 19.3, [place] % (Auto) 14.1 H, Eos % (Auto) 2.4, Baso % (Auto) 0.4, Absolute Neuts (auto) 1.6 L, Absolute Lymphs (auto) 0.48 L, Nucleated RBC % 0, Differential Comment COMMENT, Diff Path Review July01/15/22 11:35: Sodium 144, Potassium 4.0, Chloride 114 H, Carbon Dioxide 26.0, Anion Gap 4 L, BUN 15, Creatinine 0.97, Estim Creat Clear Calc 63.41, Est GFR (MDRD) Af Amer 97, Est GFR (MDRD) Non-Af 80, BUN/Creatinine Ratio 15.4, Glucose 161 H, Calcium 8.2 L, Total Bilirubin 1.10 H, AST 27, ALT 19, Alkaline Phosphatase 174 H, Total Protein 5.7 L, Albumin 1.8 L, Globulin 3.9, Albumin/Globulin Ratio 0.5 L 01/15/22 11:35: PT 23.2 H, INR 2.1 01/15/22 12:01: POC Glucose 144 H 01/15/22 12:55: Urine Color Yellow, Urine Clarity Clear, Urine pH 6.5, Ur Specific [place] 1.010, Urine Protein Negative, Urine Glucose (UA) Normal, Urine Ketones Negative, Urine Occult Blood 10 H, Urine Nitrite Negative, Urine Bilirubin Negative, Urine Urobilinogen 8 H, Ur Leukocyte Esterase Negative, Urine RBC 0 SEEN, Urine WBC 0 SEEN, Ur Squamous Epith Cells 0 SEEN, Urine Bacteria 0 SEEN, Urine Mucus 0 SEEN 01/15/22 13:10: Ammonia 59.0 H Clinical Impression(s) from Imaging Studies Venous Doppler Study 01/15/22 11:42 Interpretation Summary Deep veins of the bilateral lower extremities are patent and compressible segmentally. There is no evidence of bilateral lower extremity deep vein thrombosis. The bilateral great saphenous veins appear patent and compressible segmentally. Brain CT 01/15/22 11:43 IMPRESSION: Chronic involutional changes of the brain. No acute hemorrhage Cervical Spine CT 01/15/22 11:43 IMPRESSION: Multilevel degenerative changes, as described above. Chest X-Ray 01/15/22 12:20 IMPRESSION: Likely lingular infiltrate with associated atelectasis and effusion. Follow-up recommended to assure resolution Electronically Signed: Davy Springer MD at 12:35 EDT Reading Location ID and State: [id number] / [place] , Service support [phone] Charges/Coding Visit Charges Inpatient E&M: 26957 Init Hosp L3 Procedures Hospitalists Procedures: 36574 Advncd Care Plan 30 Min
[2022-01-15 15:13] LABS: Magnesium 2.2 mg/dL (1.6-2.6); Phosphorus 2.6 mg/dL (2.5-4.9)
[2022-01-15] MEDS: Lactated Ringers 1,000 ML 75 ML IV (15:26)
[2022-01-15] MEDS: Lactulose 20 GM/30 ML UDC PO ×2 (16:03→21:44)
[2022-01-15] MEDS: Jantoven 2 MG Tablet PO (16:03)
[2022-01-15 17:21] LABS: Bedside Glucose 117 mg/dL (74-106)
[2022-01-15] MEDS: Senna/Docusate Sodium 1 Tablet 2 TABLET PO (21:45)
[2022-01-15] MEDS: Insulin Lispro 100 UNIT/ML INSULN.PEN SC (21:50)
[2022-01-15 22:35] LABS: Bedside Glucose 156 mg/dL (74-106)
[2022-01-16] VITALS (10 sets, daily range): BP systolic 101–114; BP diastolic 53–60; PULSE 60–67; RESP 16–18; TEMP 36.6–37.1; O2SAT 94–98
[2022-01-16 04:55] LABS: Absolute Lymphocyte Count 0.58 X10^3/uL (0.83-4.51); Basophil# 0.01 X10^3/uL; Basophil% 0.3 % (0-1); Eosinophil# 0.07 X10^3/uL; Eosinophils% 2.2 % (0-5); Hematocrit 27.6 % (40-54); Hemoglobin 8.8 g/dL (13.0-16.5); Lymphocyte # 0.58 X10^3/ul (0.83-4.51); Lymphocyte % 18.5 % (19-41); Mean Corp Hgb Conc 31.9 g/dL (32-36); Mean Corpuscular Volume 94.2 fL (80-94); Mean Platelet Vol. 11.1 fl (6.2-12.0); Monocyte# 0.43 X10^3/uL; Monocyte% 13.7 % (0-10); NRBC Flagged by Analyzer 0 % (0-5); Neutrophil # 2.04 X10^3/uL (2.7-7.7); POSITIVE DIFFERENTIAL YES; Platelet Count 116 K/mm3 (150-450); RBC Distribution Width CV 16.6 % (11.6-14.6); RBC Distribution Width SD 57.1 fl (35.1-43.9); Red Blood Count 2.93 M/mm3 (4.6-6.2); White Blood Count 3.1 K/mm3 (4.4-11.0)
[2022-01-16 04:59] LABS: Differential Indicated SCAN CRITERIA MET
[2022-01-16 05:10] LABS: Prothrombin Time (Protime)PT. 22.5 SECONDS (11.7-14.9)
[2022-01-16 05:14] LABS: Anisocytosis 1+; Macrocytosis 1+; Platelet Estimate SLT DEC (ADEQ)
[2022-01-16] MEDS: Lactulose 20 GM/30 ML UDC PO ×3 (05:50→20:38)
[2022-01-16 06:30] LABS: ALB/GLOB Ratio 0.4 RATIO (0.9-2.4); AST(SGOT) 28 U/L (15-37); Alanine Aminotransfer ALT/SGPT 18 U/L (16-61); Albumin, Serum 1.8 g/dL (3.2-5.0); Alkaline Phosphatase 157 U/L (45-117); Anion Gap 5 (5-15); BUN 13 mg/dL (7-18); BUN/Creat Ratio 13.4 RATIO (10-20); Calcium,Total 8.4 mg/dL (8.5-10.1); Chloride 113 mmol/L (98-107); Creatinine, Serum 0.97 mg/dL (0.70-1.30); EST Glomerular Filtration Rate 80 mL/min (>60); Est Glom Filt Rate - Afr Amer 97 mL/min (>60); Estimated Creatinine Clearance 63.41 ml/min; Glucose 96 mg/dL (74-106); Potassium 3.8 mmol/L (3.5-5.1); Protein, Total 5.8 g/dL (6.4-8.2); Sodium Level 143 mmol/L (136-145); Thyroid Stim Hormone (TSH) 1.61 uIU/mL (0.358-3.74)
[2022-01-16 07:42] LABS: Vitamin B12 599 pg/mL (211-911); Vitamin D,25 Hydroxy 30.1 ng/mL
--- NOTE | 2022-01-16 08:33 | PCM.PN.HOSP ---
Subjective Subjective DOS: 01/16/2022 CC: Needs to have a bowel movement Mr. Boland is irritated and said he needs to have a bowel movement, minimally cooperative at the time. Denies any chest pain or shortness of breath, was able to eat breakfast without significant nausea. No swelling, denied any other complaints though did not cooperate well with questioning. Objective Data Objective Data Vital Signs: Vital Signs Temp Pulse Resp BP Pulse Ox O2 Del Method 97.9 F 62 18 105/53 L 97 Room Air 01/16/22 03:19 01/16/22 06:36 01/16/22 03:19 01/16/22 03:19 01/16/22 03:19 01/16/22 03:21 Oxygen Delivery Method Room Air Weight: 74.7 kg Body Mass Index (BMI) 25.7 Intake & Output: Intake and Output for Last 24 Hours 01/14/22 01/15/22 01/16/22 23:59 23:59 23:59 Intake Total 740 / 960 1220 / 1220 Output Total 150 / 150 Balance 740 / 810 1070 / 1070 Lab / Micro Data Result Diagrams: 01/16/22 04:47 01/16/22 04:47 Labs: Laboratory Results - last 24 hr 01/15/22 11:35: WBC 2.5 L, RBC 3.07 L, Hgb 9.0 L, Hct 29.3 L, MCV 95.4 H, MCH 29.3, MCHC 30.7 L, RDW Std Deviation 58.6 H, RDW Coeff of [place] 16.8 H, Plt Count 109 L, MPV 11.8, Immature Gran % (Auto) 0.400, Neut % (Auto) 63.4, Lymph % (Auto) 19.3, [place] % (Auto) 14.1 H, Eos % (Auto) 2.4, Baso % (Auto) 0.4, Absolute Neuts (auto) 1.6 L, Absolute Lymphs (auto) 0.48 L, Nucleated RBC % 0, Differential Comment COMMENT, Diff Path Review July01/15/22 11:35: Sodium 144, Potassium 4.0, Chloride 114 H, Carbon Dioxide 26.0, Anion Gap 4 L, BUN 15, Creatinine 0.97, Estim Creat Clear Calc 63.41, Est GFR (MDRD) Af Amer 97, Est GFR (MDRD) Non-Af 80, BUN/Creatinine Ratio 15.4, Glucose 161 H, Calcium 8.2 L, Total Bilirubin 1.10 H, AST 27, ALT 19, Alkaline Phosphatase 174 H, Total Protein 5.7 L, Albumin 1.8 L, Globulin 3.9, Albumin/Globulin Ratio 0.5 L 01/15/22 11:35: PT 23.2 H, INR 2.1 01/15/22 11:35: Phosphorus 2.6, Magnesium 2.2 01/15/22 12:01: POC Glucose 144 H 01/15/22 12:55: Urine Color Yellow, Urine Clarity Clear, Urine pH 6.5, Ur Specific [place] 1.010, Urine Protein Negative, Urine Glucose (UA) Normal, Urine Ketones Negative, Urine Occult Blood 10 H, Urine Nitrite Negative, Urine Bilirubin Negative, Urine Urobilinogen 8 H, Ur Leukocyte Esterase Negative, Urine RBC 0 SEEN, Urine WBC 0 SEEN, Ur Squamous Epith Cells 0 SEEN, Urine Bacteria 0 SEEN, Urine Mucus 0 SEEN 01/15/22 13:10: Ammonia 59.0 H 01/15/22 17:02: POC Glucose 117 H 01/15/22 21:42: POC Glucose 156 H 01/16/22 04:47: WBC 3.1 L, RBC 2.93 L, Hgb 8.8 L, Hct 27.6 L, MCV 94.2 H, MCH 30.0, MCHC 31.9 L, RDW Std Deviation 57.1 H, RDW Coeff of [place] 16.6 H, Plt Count 116 L, MPV 11.1, Immature Gran % (Auto) 0.300, Neut % (Auto) 65.0, Lymph % (Auto) 18.5 L, [place] % (Auto) 13.7 H, Eos % (Auto) 2.2, Baso % (Auto) 0.3, Absolute Neuts (auto) 2.0, Absolute Lymphs (auto) 0.58 L, Nucleated RBC % 0, Diff Path Review July, Platelet Estimate SLT DEC, Anisocytosis 1+, Macrocytosis 1+ 01/16/22 04:47: Sodium 143, Potassium 3.8, Chloride 113 H, Carbon Dioxide 25.0, Anion Gap 5, BUN 13, Creatinine 0.97, Estim Creat Clear Calc 63.41, Est GFR (MDRD) Af Amer 97, Est GFR (MDRD) Non-Af 80, BUN/Creatinine Ratio 13.4, Glucose 96, Calcium 8.4 L, Total Bilirubin 1.00, AST 28, ALT 18, Alkaline Phosphatase 157 H, Total Protein 5.8 L, Albumin 1.8 L, Globulin 4.0, Albumin/Globulin Ratio 0.4 L, TSH 1.61 01/16/22 04:47: PT 22.5 H, INR 2.0 01/16/22 04:47: Vitamin B12 599, Vitamin D 25-Hydroxy 30.1 Micro: Microbiology 01/15/22 12:07 Nasal Secretion SARS-CoV-2 Antigen (Rapid) - Final Radiography Diagnostic Testing: Radiology Impression Venous Doppler Study 01/15/22 11:42 Interpretation Summary Deep veins of the bilateral lower extremities are patent and compressible segmentally. There is no evidence of bilateral lower extremity deep vein thrombosis. The bilateral great saphenous veins appear patent and compressible segmentally. Ordering Physician: Mike Cochran Performed By: Martinez Cunningham Trye Brain CT 01/15/22 11:43 IMPRESSION: Chronic involutional changes of the brain. No acute hemorrhage Electronically Signed: Davy Springer MD at 12:23 EDT , Cervical Spine CT 01/15/22 11:43 IMPRESSION: Multilevel degenerative changes, as described above. Electronically Signed: Davy Springer MD at 12:27 EDT , Chest X-Ray 01/15/22 12:20 IMPRESSION: Likely lingular infiltrate with associated atelectasis and effusion. Follow-up recommended to assure resolution Electronically Signed: Davy Srpinger MD at 12:35 EDT , Physical Exam Const alert Constitutional Narrative: Irritable HEENT normocephalic Eyes Eyes Narrative: EOM grossly intact, anicteric Neck supple Resp normal respiratory effort Resp Narrative: Diminished at the bases Cardio regular rate and regular rhythm GI non-distended Extremity Extremity Narrative: No edema appreciated Neuro moves all extremities Neuro Narrative: No overt focal deficits appreciated Psych Psych Narrative: Irritable and minimally cooperative Assessment & Plan Assessment/Plan (1) Encephalopathy acute: (2) 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 Boland is a 71-year-old gentleman with a history of Call cirrhosis, dementia, hypertension, type 2 diabetes, and COPD who presented to [facility] ED from [facility] by EMS for altered mental status. He had had declining mental status and general health as well as fall and failure to thrive for 2 to 3 days acutely. Was only oriented to self. #Altered mental status secondary to acute toxic metabolic encephalopathy with a history of Call cirrhosis and dementia Had low blood pressure in addition to this which necessitated inpatient admission for diagnosis and treatment Blood pressure had been improving with IV fluids and it appeared he had been dehydrated Pneumonia elevated, lactulose ordered Vitamin B12, TSH, vitamin D levels this a.m. are all within normal limits UA not suggestive of infectious etiology 01/16/2022: Was minimally cooperative at the time, will attempt to discuss with him further this afternoon. Per report mental status has improved mildly. #Debility and multiple falls Brain and cervical spine CT with only chronic changes PT/OT consulted Nutrition consult and case assistant consult Palliative care consult discussed with daughter yesterday and she reported she will think about it #Decompensated Call cirrhosis with mild pancytopenia and hepatic encephalopathy Also lines decreased with slow decline over the past 2 to 3 months Plan to resume Lasix and spironolactone this morning, given blood pressure still borderline we will give 20 of Lasix and spironolactone with holding parameters On nadolol nightly holding parameters #COPD, chronic Does not appear to be in exacerbation DuoNebs as needed Incentive spirometry #Diabetes mellitus type 2 Accu-Cheks and sliding scale coverage #History of CVA Per documentation he had stroke in the past with mild left-sided facial droop, on Coumadin, in sinus rhythm at this time but presumed he had previous paroxysmal A. fib INR is therapeutic, continue Coumadin, monitor INR daily #VTE prophylaxis, high risk: Patient on warfarin low-dose with INR therapeutic. Continued. On review of previous EKG patient is sinus rhythm but patient had a stroke in the past with mild left-sided facial droop. Probably he might have paroxysmal A. fib. Monitor INR daily Eunice Álvarez MD Charges/Coding Visit Charges Inpatient E&M: 40804 Subs Hosp L2
[2022-01-16] MEDS: Sertraline 50 MG Tablet PO (09:09)
[2022-01-16] MEDS: Pantoprazole Sodium 40 MG Tablet PO (09:09)
[2022-01-16] MEDS: Ferrous Sulfate 325 MG Tablet PO (09:09)
[2022-01-16] MEDS: Multivitamins,Therapeutic Tablet 1 TABLET PO (09:09)
[2022-01-16] MEDS: Furosemide 20 MG Tablet PO (09:09)
[2022-01-16] MEDS: Fludrocortisone Acetate 0.1 MG Tablet 0.2 MG PO (09:09)
[2022-01-16] MEDS: Senna/Docusate Sodium 1 Tablet 2 TABLET PO (09:12)
--- NOTE | 2022-01-16 10:11 | CASEMGMT ---
Discharge Ct Tech This card writer hand sent updates on patient to [facility]. Gerardo GUTIERREZ Student Career Development Specialist
--- NOTE | 2022-01-16 10:31 | CASEMGMT ---
Addendum entered by Erica Causey 01/16/22 11:11: AYDEE received a phone call from patient's daughter, Lulú. Lulú confirmed the plan is for patient to return to [facility] at discharge. Plan: d/c back to [facility] under intermediate level of care. Erica HALL Original Note: Per chart patient is from [facility]. AYDEE called patient's daughter and left her a voice mail requesting a return call. AYDEE also asked Marissa d/c multimedia assistant to please send updates to [facility] and check to see if patient needs a pre-cert to return. Erica HALL
[2022-01-16] MEDS: Insulin Lispro 100 UNIT/ML INSULN.PEN SC (11:14)
[2022-01-16 11:35] LABS: Bedside Glucose 167 mg/dL (74-106)
[2022-01-16 11:40] LABS: Bedside Glucose 95 mg/dL (74-106)
[2022-01-16 13:21] LABS: Pathologist Review Reviewed
[2022-01-16 13:23] LABS: Pathologist Review Reviewed
[2022-01-16] MEDS: Jantoven 2 MG Tablet PO (16:15)
[2022-01-16 16:30] LABS: Bedside Glucose 114 mg/dL (74-106)
[2022-01-16] MEDS: Nadolol 20 MG Tablet PO (20:38)
[2022-01-16 21:16] LABS: Bedside Glucose 114 mg/dL (74-106)
[2022-01-17 02:59] VITALS: PULSE 58
[2022-01-17 03:00] VITALS: BP 109/45; PULSE 60; RESP 18; TEMP 37.1; O2SAT 95
[2022-01-17] MEDS: Lactulose 20 GM/30 ML UDC PO (06:27)
[2022-01-17 06:46] LABS: Bedside Glucose 123 mg/dL (74-106)
[2022-01-17 06:54] LABS: Absolute Lymphocyte Count 0.59 X10^3/uL (0.83-4.51); Absolute Neutrophil Count 1.9 X10^3/uL (2.0-7.7); Basophil# 0.01 X10^3/uL; Basophil% 0.3 % (0-1); Differential Indicated SCAN CRITERIA MET; Eosinophil# 0.06 X10^3/uL; Hematocrit 26.6 % (40-54); Hemoglobin 8.5 g/dL (13.0-16.5); Lymphocyte # 0.59 X10^3/ul (0.83-4.51); Lymphocyte % 19.3 % (19-41); Mean Corpuscular Hgb 29.8 pg (27.0-32.0); Mean Corpuscular Volume 93.3 fL (80-94); Mean Platelet Vol. 11.9 fl (6.2-12.0); Monocyte# 0.46 X10^3/uL; Monocyte% 15.1 % (0-10); NRBC Flagged by Analyzer 0 % (0-5); Neutrophil # 1.92 X10^3/uL (2.7-7.7); POSITIVE DIFFERENTIAL YES; Platelet Count 133 K/mm3 (150-450); RBC Distribution Width CV 16.4 % (11.6-14.6); RBC Distribution Width SD 55.9 fl (35.1-43.9); Red Blood Count 2.85 M/mm3 (4.6-6.2); White Blood Count 3.1 K/mm3 (4.4-11.0)
[2022-01-17 07:00] VITALS: PULSE 56
[2022-01-17 07:04] LABS: International Normalized Ratio 1.8; Prothrombin Time (Protime)PT. 20.5 SECONDS (11.7-14.9)
[2022-01-17 07:10] LABS: Anisocytosis 1+
[2022-01-17 07:27] LABS: ALB/GLOB Ratio 0.5 RATIO (0.9-2.4); AST(SGOT) 26 U/L (15-37); Alanine Aminotransfer ALT/SGPT 17 U/L (16-61); Albumin, Serum 1.7 g/dL (3.2-5.0); Alkaline Phosphatase 138 U/L (45-117); Anion Gap 5 (5-15); BUN 12 mg/dL (7-18); BUN/Creat Ratio 13.1 RATIO (10-20); Calcium,Total 7.9 mg/dL (8.5-10.1); Chloride 111 mmol/L (98-107); Creatinine, Serum 0.91 mg/dL (0.70-1.30); EST Glomerular Filtration Rate 86 mL/min (>60); Est Glom Filt Rate - Afr Amer 104 mL/min (>60); Estimated Creatinine Clearance 67.59 ml/min; Globulin 3.4 g/dL (2.2-4.2); Glucose 99 mg/dL (74-106); Magnesium 1.7 mg/dL (1.6-2.6); Potassium 3.2 mmol/L (3.5-5.1); Protein, Total 5.1 g/dL (6.4-8.2); Sodium Level 141 mmol/L (136-145)
--- NOTE | 2022-01-17 08:17 | PCM.PN.HOSP ---
Subjective Subjective DOS: 01/17/2022 CC: Follow-up altered mental status Mr. Yuan reports he is feeling much better today, mental status has improved significantly. Has not had a bowel movement overnight. Reports he is peeing well, denies significant abdominal pain. Appetite fair, no nausea or vomiting. Denies other complaints this AM Objective Data Objective Data Vital Signs: Vital Signs Temp Pulse Resp BP Pulse Ox O2 Del Method 98.7 F 56 L 18 109/45 L 95 Room Air 01/17/22 03:00 01/17/22 07:00 01/17/22 03:00 01/17/22 03:00 01/17/22 03:00 01/17/22 03:00 Oxygen Delivery Method Room Air Weight: 74.7 kg Body Mass Index (BMI) 25.7 Intake & Output: Intake and Output for Last 24 Hours 01/15/22 01/16/22 01/17/22 23:59 23:59 23:59 Intake Total 740 / 960 2220 / 2280 60 / 60 Output Total 150 / 150 Balance 740 / 810 2070 / 2130 60 / 60 Lab / Micro Data Result Diagrams: 01/17/22 05:58 01/17/22 05:58 Labs: Laboratory Results - last 24 hr 01/15/22 11:35: Diff Path Review Reviewed 01/16/22 04:47: Diff Path Review Reviewed 01/16/22 06:42: POC Glucose 95 01/16/22 11:13: POC Glucose 167 H 01/16/22 16:11: POC Glucose 114 H 01/16/22 20:36: POC Glucose 114 H 01/17/22 05:58: PT 20.5 H, INR 1.8 01/17/22 05:58: WBC 3.1 L, RBC 2.85 L, Hgb 8.5 L, Hct 26.6 L, MCV 93.3, MCH 29.8, MCHC 32.0, RDW Std Deviation 55.9 H, RDW Coeff of Bradley 16.4 H, Plt Count 133 L, MPV 11.9, Immature Gran % (Auto) 0.300, Neut % (Auto) 63.0, Lymph % (Auto) 19.3, [place] % (Auto) 15.1 H, Eos % (Auto) 2.0, Baso % (Auto) 0.3, Absolute Neuts (auto) 1.9 L, Absolute Lymphs (auto) 0.59 L, Nucleated RBC % 0, Diff Path Review May foll, Anisocytosis 1+ 01/17/22 05:58: Sodium 141, Potassium 3.2 L, Chloride 111 H, Carbon Dioxide 25.0, Anion Gap 5, BUN 12, Creatinine 0.91, Estim Creat Clear Calc 67.59, Est GFR (MDRD) Af Amer 104, Est GFR (MDRD) Non-Af 86, BUN/Creatinine Ratio 13.1, Glucose 99, Calcium 7.9 L, Magnesium 1.7, Total Bilirubin 1.30 H, AST 26, ALT 17, Alkaline Phosphatase 138 H, Total Protein 5.1 L, Albumin 1.7 L, Globulin 3.4, Albumin/Globulin Ratio 0.5 L 01/17/22 06:26: POC Glucose 123 H Micro: Microbiology 01/15/22 12:07 Nasal Secretion SARS-CoV-2 Antigen (Rapid) - Final Physical Exam Const alert, oriented x3 and no apparent distress HEENT normocephalic Eyes Eyes Narrative: EOM grossly intact, anicteric Neck supple Resp normal respiratory effort Resp Narrative: Diminished at the bases Cardio regular rate and regular rhythm GI non-distended GI Narrative: , Nontender, soft Extremity Extremity Narrative: 1+ bilateral lower extremity edema Neuro moves all extremities Neuro Narrative: No overt focal deficits appreciated Psych Psych Narrative: Cooperative Assessment & Plan Assessment/Plan (1) Encephalopathy acute: (2) 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 Boland is a 71-year-old gentleman with a history of Call cirrhosis, dementia, hypertension, type 2 diabetes, and COPD who presented to [facility] ED from [facility] by EMS for altered mental status. He had had declining mental status and general health as well as fall and failure to thrive for 2 to 3 days acutely. Was only oriented to self. #Altered mental status secondary to acute toxic metabolic encephalopathy with a history of Call cirrhosis and dementia Had low blood pressure in addition to this which necessitated inpatient admission for diagnosis and treatment Blood pressure had been improving with IV fluids and it appeared he had been dehydrated Pneumonia elevated, lactulose ordered Vitamin B12, TSH, vitamin D levels this a.m. are all within normal limits UA not suggestive of infectious etiology 01/16/2022: Was minimally cooperative at the time, will attempt to discuss with him further this afternoon. Per report mental status has improved mildly. 01/17/2022: Significantly improved, alert and oriented x3. Feeling much better. Likely due to lactulose #Debility and multiple falls Brain and cervical spine CT with only chronic changes PT/OT consulted Nutrition consult and corrections caseworker consult Palliative care consult discussed with daughter yesterday and she reported she will think about it 01/17/2022: Discussed with daughter again about palliative care, still thinking about it. Is doing much better. We will go back to facility where he was prior to admission #Decompensated Call cirrhosis with mild pancytopenia and hepatic encephalopathy Also lines decreased with slow decline over the past 2 to 3 months Plan to resume Lasix and spironolactone this morning, given blood pressure still borderline we will give 20 of Lasix and spironolactone with holding parameters On nadolol nightly holding parameters 01/17/2022: Mental status improved, has done much better overall. Lasix and spironolactone decreased given blood pressure, daughter reports that his blood pressure always stays low. If he tolerates a.m. doses can likely DC back to facility he was previously with further outpatient titration, breathing unremarkable #COPD, chronic Does not appear to be in exacerbation DuoNebs as needed Incentive spirometry #Diabetes mellitus type 2 Accu-Cheks and sliding scale coverage #History of CVA Per documentation he had stroke in the past with mild left-sided facial droop, on Coumadin, in sinus rhythm at this time but presumed he had previous paroxysmal A. fib INR is therapeutic, continue Coumadin, monitor INR daily #VTE prophylaxis, high risk: Patient on warfarin low-dose with INR therapeutic. Continued. On review of previous EKG patient is sinus rhythm but patient had a stroke in the past with mild left-sided facial droop. Probably he might have paroxysmal A. fib. Monitor INR daily Eunice Álvarez MD Charges/Coding Visit Charges Inpatient E&M: 24198 Subs Hosp L2
--- NOTE | 2022-01-17 08:56 | CASEMGMT ---
Social Work As per initial debit agent, pt has LW/POA, and Lulú Wong is pt's medical POA. SW called [facility], message left requesting they fax over LW/POA as we do not have them on file here. NATALIIA Dorsey
[2022-01-17 10:30] VITALS: BP 90/56; PULSE 57; RESP 14; TEMP 37.2; O2SAT 96
--- NOTE | 2022-01-17 11:27 | TREXTCAR_ITS ---
Diet Diet Order/Speech Therapy: 01/16/22 12:10 Diet: Carbohydrate Controlled Food consistency:: Regular Liquid Consistency:: Regular/Thin Dietary Modifications:: Cardiac / Heart Healthy Type of Dietary Supplement:: Glucerna Shake Is pt able to select menu?: Yes Diet Comments: w/ dinner only Routine Orders/Code Status Suppository Type: Dulcolax 10mg Suppository Frequency: Daily PRN Keep PO Greater than or Equal to (%): 92 Routine Lab Work: INR Wound(s) Bilateral shins: Wound Type: Abrasion Right Elbow: Wound Type: Abrasion Therapies Physical Therapy: Eval and Treat Occupational Therapy: Eval and Treat Problem/Diagnosis (1) Encephalopathy acute: Status: Acute Code(s): G93.40 - Encephalopathy, unspecified (2) Liver cirrhosis secondary to CALL: Status: Acute Code(s): K75.81 - Nonalcoholic steatohepatitis (CALL); K74.60 - Unspecified cirrhosis of liver (3) Anemia: Status: Acute Code(s): D64.9 - Anemia, unspecified (4) Alzheimer's dementia: Status: Acute Code(s): G30.9 - Alzheimer's disease, unspecified; F02.80 - Dementia in other diseases classified elsewhere, unspecified severity, without behavioral disturbance, psychotic disturbance, mood disturbance, and anxiety (5) Pancytopenia: Status: Acute Code(s): D61.818 - Other pancytopenia Plan #Altered mental status secondary to acute toxic metabolic encephalopathy with a history of Call cirrhosis and dementia- resolved #Debility and multiple falls #Decompensated Call cirrhosis with mild pancytopenia and hepatic encephalopathy #COPD, chronic #Diabetes mellitus type 2 #History of CVA Mr. Boland is a 71-year-old gentleman with a history of Call cirrhosis, dementia, hypertension, type 2 diabetes, and COPD who presented to [facility] ED from [facility] by EMS for altered mental status. He had had declining mental status and general health as well as fall and failure to thrive for 2 to 3 days acutely. Was only oriented to self. He was noted to have an elevated ammonia in the 50s with lethargy and decreased urine output. He was started on lactulose, and mental status improved significantly. Initially blood pressure was low and diuretics held but he did develop some lower extremity edema. Discussed with daughter who reported that his blood pressure always stays very low and has for significant mount of time. Given his underlying liver disease this is very likely. Even that blood pressures in the 90s systolic he was mentating well and had no complaints. Diuretics were restarted but with Lasix at a lower dose. He tolerated this well. INR was therapeutic, on day of discharge it was 1.8. Do not feel this needs to keep him in the hospital. With restarting medications very likely to go back in therapeutic range. Would recommend INR monitoring upon discharge. Additionally may benefit from work-up for pancytopenia. Additionally had discussed palliative consult with daughter who would like to think about this, can consider this as an outpatient. Advise continuing lactulose and titrate to 2-3 bowel movements daily Instructions for patient as below: ? You will need to begin taking lactulose 3 times a day, this can be adjusted to maintain 2-3 bowel movements daily ? You have been maintained on your Lasix and spironolactone, but the doses have been decreased due to your blood pressure. Your breathing was stable, this can be further adjusted on an outpatient basis. Advise daily weights and if concerns for fluid overload please contact your physician ?You have been noted to have what we call pancytopenia, at times this can go along with problems with the liver. Would advise following up with your primary care physician upon discharge for further work-up ?You are presently on Coumadin, please continue following with your physician for further adjustments. -Please call your primary care provider's office upon discharge to schedule a hospital follow up within 1 week. -For any concerning signs or symptoms please call 911 or proceed to the nearest emergency department Allergies/Procedures Done in Hospital Allergies No Known Allergies Allergy (Verified 01/15/22 11:27) Type of Care/Length of Stay Estimated LOS: More Than 30 Days Type of Care Needed: Intermediate Rehab Potential: Fair Prognosis: Fair Additional Orders/Day of Discharge Day of Discharge: 01/17/22 Dietary and Speech Recommendations Dietitian Recommendations/Changes: will adjust diet to cardiac, CHO controlled; glucerna 240mL w/ dinner Discharge Plan Admission Admit Date/Time: 01/15/22 14:12 Primary Reason for Your Visit: Altered mental status Attending Provider: Eunice Álvarez Primary Care Provider: [facility],[place] Consulting Providers: Jaiden Lacey Instructions Patient Instructions: Lactulose Oral solution [Encephalopathy], Lactulose Oral Solution Additional Instructions / Restrictions: ? You will need to begin taking lactulose 3 times a day, this can be adjusted to maintain 2-3 bowel movements daily ? You have been maintained on your Lasix and spironolactone, but the doses have been decreased due to your blood pressure. Your breathing was stable, this can be further adjusted on an outpatient basis. Advise daily weights and if concerns for fluid overload please contact your physician ?You have been noted to have what we call pancytopenia, at times this can go along with problems with the liver. Would advise following up with your primary care physician upon discharge for further work-up ?You are presently on Coumadin, please continue following with your physician for further adjustments. -Please call your primary care provider's office upon discharge to schedule a hospital follow up within 1 week. -For any concerning signs or symptoms please call 911 or proceed to the nearest emergency department Discharge Orders/Prescriptions Prescriptions: New furosemide 20 mg Tablet 20 mg PO DAILY 30 Days Qty: 30 0RF lactulose 20 gram/30 mL Solution 20 g PO TID 30 Days Qty: 2700 0RF Continued multivitamin Tablet 1 tab PO DAILY warfarin 2.5 mg Tablet 2.5 mg PO SUSA spironolactone 25 mg Tablet 12.5 mg PO DAILY nadolol 20 mg Tablet 20 mg PO QHS pantoprazole [Protonix] 40 mg Tablet,Delayed Release (Dr/Ec) 40 mg PO DAILY ferrous sulfate 325 mg (65 mg iron) Tablet 325 mg PO DAILY sertraline 50 mg Tablet 50 mg PO DAILY potassium chloride [Klor-Con M20] 20 mEq Tablet,Er Particles/Crystals 20 meq PO DAILY warfarin 2 mg Tablet 2 mg PO MOTUWETHFR fludrocortisone 0.1 mg tablet 0.2 mg PO BREAKFAST acetaminophen 325 mg Tablet 650 mg PO Q4H PRN (Reason: Pain) Boost Glucose Control 0.06-1.1 gram-kcal/mL Liquid 237 ml PO QHS Discontinued furosemide [Lasix] 40 mg Tablet 40 mg PO DAILY acetaminophen 500 mg Tablet 1,000 mg PO DAILY Referrals / [facility] [[facility] - Disposition Disposition (needs filled in before D/C Order can be placed): NonSkilled NH/Intermed Care
[2022-01-17 11:30] VITALS: BP 102/51; PULSE 53; RESP 16; TEMP 37.2; O2SAT 95
[2022-01-17] MEDS: Spironolactone 25 MG Tablet 12.5 MG PO (11:55)
[2022-01-17] MEDS: Potassium Chloride Oral Tablet 20 MEQ PO (11:55)
[2022-01-17] MEDS: Fludrocortisone Acetate 0.1 MG Tablet 0.2 MG PO (11:55)
[2022-01-17] MEDS: Furosemide 20 MG Tablet PO (11:56)
[2022-01-17] MEDS: Ferrous Sulfate 325 MG Tablet PO (11:56)
[2022-01-17] MEDS: Sertraline 50 MG Tablet PO (11:57)
[2022-01-17] MEDS: Senna/Docusate Sodium 1 Tablet 2 TABLET PO (11:57)
[2022-01-17] MEDS: Pantoprazole Sodium 40 MG Tablet PO (12:13)
[2022-01-17] MEDS: Multivitamins,Therapeutic Tablet 1 TABLET PO (12:14)
--- NOTE | 2022-01-17 12:18 | DS.PCM_ITS ---
Providers Date of Admission: 01/15/22 Date of Discharge: 01/17/22 Primary Care Physician: [facility] Reason For Visit: CALL CIRRHOSIS, AMS Diagnosis Discharge Diagnosis (1) Encephalopathy acute: Status: Acute Code(s): G93.40 - Encephalopathy, unspecified (2) Liver cirrhosis secondary to CALL: Status: Acute Code(s): K75.81 - Nonalcoholic steatohepatitis (CALL); K74.60 - Unspecified cirrhosis of liver (3) Anemia: Status: Acute Code(s): D64.9 - Anemia, unspecified (4) Alzheimer's dementia: Status: Acute Code(s): G30.9 - Alzheimer's disease, unspecified; F02.80 - Dementia in other diseases classified elsewhere, unspecified severity, without behavioral disturbance, psychotic disturbance, mood disturbance, and anxiety (5) Pancytopenia: Status: Acute Code(s): D61.818 - Other pancytopenia Plan #Altered mental status secondary to acute toxic metabolic encephalopathy with a history of Call cirrhosis and dementia- resolved #Debility and multiple falls #Decompensated Call cirrhosis with mild pancytopenia and hepatic encephalopathy #COPD, chronic #Diabetes mellitus type 2 #History of CVA Medications at Discharge Home Medications ferrous sulfate 325 mg (65 mg iron) tablet 325 mg PO DAILY supplement 11/07/21 multivitamin 1 tab PO DAILY supplement 11/07/21 nadolol 20 mg tablet 20 mg PO QHS 11/07/21 pantoprazole 40 mg tablet,delayed release (Protonix) 40 mg PO DAILY GERD 11/07/21 sertraline 50 mg tablet 50 mg PO DAILY DEPRESSION 11/07/21 spironolactone 25 mg tablet 12.5 mg PO DAILY 11/07/21 warfarin 2.5 mg tablet 2.5 mg PO SUSA 11/07/21 acetaminophen 325 mg tablet 650 mg PO Q4H PRN Pain 01/15/22 fludrocortisone 0.1 mg tablet 0.2 mg PO BREAKFAST HYPOTENSION 01/15/22 nutrition tx glu intol,lac-free,soy-fiber 0.06 gram-1.1 kcal/mL liquid (Boost Glucose Control) 237 ml PO QHS supplement 01/15/22 potassium chloride 20 mEq tablet,extended release(part/cryst) (Klor-Con M) 20 m eq PO DAILY supplement 01/15/22 warfarin 2 mg tablet 2 mg PO MOTUWETHFR 01/15/22 furosemide 20 mg tablet 20 mg PO DAILY 30 days #30 tabs 01/17/22 lactulose 20 gram/30 mL oral solution 20 g (30 mL) PO TID 30 days #2,700 mL 01/17/22 Hospital Course Summary of Care Provided Minutes Spent on Discharge: 32 Hospital Course: Mr. Boland is a 71-year-old gentleman with a history of Call cirrhosis, dementia, hypertension, type 2 diabetes, and COPD who presented to [facility] ED from [facility] by EMS for altered mental status. He had had declining mental status and general health as well as fall and failure to thrive for 2 to 3 days acutely. Was only oriented to self. He was noted to have an elevated ammonia in the 50s with lethargy and decreased urine output. He was started on lactulose, and mental status improved significantly. Initially blood pressure was low and diuretics held but he did develop some lower extremity edema. Discussed with daughter who reported that his blood pressure always stays very low and has for significant mount of time. Given his underlying liver disease this is very likely. Even that blood pressures in the 90s systolic he was mentating well and had no complaints. Diuretics were restarted but with Lasix at a lower dose. He tolerated this well. INR was therapeutic, on day of discharge it was 1.8. Do not feel this needs to keep him in the hospital. With restarting medications very likely to go back in thera peutic range. Would recommend INR monitoring upon discharge. Additionally may benefit from work-up for pancytopenia. Additionally had discussed palliative consult with daughter who would like to think about this, can consider this as an outpatient. Advise continuing lactulose and titrate to 2-3 bowel movements daily. Instructions for patient as below: ? You will need to begin taking lactulose 3 times a day, this can be adjusted to maintain 2-3 bowel movements daily ? You have been maintained on your Lasix and spironolactone, but the doses have been decreased due to your blood pressure. Your breathing was stable, this can be further adjusted on an outpatient basis. Advise daily weights and if concerns for fluid overload please contact your physician ?You have been noted to have what we call pancytopenia, at times this can go along with problems with the liver. Would advise following up with your primary care physician upon discharge for further work-up ?You are presently on Coumadin, please continue following with your physician for further adjustments. -Please call your primary care provider's office upon discharge to schedule a hospital follow up within 1 week. -For any concerning signs or symptoms please call 911 or proceed to the nearest emergency department Physical Exam Const alert, oriented x3 and no apparent distress HEENT normocephalic Eyes Eyes Narrative: EOM grossly intact, anicteric Neck supple Resp normal respiratory effort Resp Narrative: Diminished at the bases Cardio regular rate and regular rhythm GI non-distended GI Narrative: , Nontender, soft Extremity Extremity Narrative: 1+ bilateral lower extremity edema Neuro moves all extremities Neuro Narrative: No overt focal deficits appreciated Psych Psych Narrative: Cooperative Weight / BMI Weight Weight: 74.7 kg Body Mass Index (BMI) 25.7 ABG / Lab / Microbiology Data Result Diagrams: 01/17/22 05:58 01/17/22 05:58 Laboratory: Laboratory Results - last 24 hr 01/15/22 11:35: Diff Path Review Reviewed 01/16/22 04:47: Diff Path Review Reviewed 01/16/22 16:11: POC Glucose 114 H 01/16/22 20:36: POC Glucose 114 H 01/17/22 05:58: PT 20.5 H, INR 1.8 01/17/22 05:58: WBC 3.1 L, RBC 2.85 L, Hgb 8.5 L, Hct 26.6 L, MCV 93.3, MCH 29.8, MCHC 32.0, RDW Std Deviation 55.9 H, RDW Coeff of Bradley 16.4 H, Plt Count 133 L, MPV 11.9, Immature Gran % (Auto) 0.300, Neut % (Auto) 63.0, Lymph % (Auto) 19.3, [place] % (Auto) 15.1 H, Eos % (Auto) 2.0, Baso % (Auto) 0.3, Absolute Neuts (auto) 1.9 L, Absolute Lymphs (auto) 0.59 L, Nucleated RBC % 0, Diff Path Review May foll, Anisocytosis 1+ 01/17/22 05:58: Sodium 141, Potassium 3.2 L, Chloride 111 H, Carbon Dioxide 25.0, Anion Gap 5, BUN 12, Creatinine 0.91, Estim Creat Clear Calc 67.59, Est GFR (MDRD) Af Amer 104, Est GFR (MDRD) Non-Af 86, BUN/Creatinine Ratio 13.1, Glucose 99, Calcium 7.9 L, Magnesium 1.7, Total Bilirubin 1.30 H, AST 26, ALT 17, Alkaline Phosphatase 138 H, Total Protein 5.1 L, Albumin 1.7 L, Globulin 3.4, Albumin/Globulin Ratio 0.5 L 01/17/22 06:26: POC Glucose 123 H Microbiology: Microbiology 01/15/22 12:07 Nasal Secretion SARS-CoV-2 Antigen (Rapid) - Final Meaningful Use Info Meaningful Use Diagnoses (Choose all that apply): None applicable Discharge Plan Admission Admit Date/Time: 01/15/22 14:12 Primary Reason for Your Visit: Altered mental status Attending Provider: Eunice Álvarez Primary Care Provider: [facility],[place] Consulting Providers: Jaiden Lacey Instructions Patient Instructions: Lactulose Oral solution [Encephalopathy], Lactulose Oral Solution Additional Instructions / Restrictions: ? You will need to begin taking lactulose 3 times a day, this can be adjusted to maintain 2-3 bowel movements daily ? You have been maintained on your Lasix and spironolactone, but the doses have been decreased due to your blood pressure. Your breathing was stable, this can be further adjusted on an outpatient basis. Advise daily weights and if concerns for fluid overload please contact your physician ?You have been noted to have what we call pancytopenia, at times this can go along with problems with the liver. Would advise following up with your primary care physician upon discharge for further work-up ?You are presently on Coumadin, please continue following with your physician for further adjustments. -Please call your primary care provider's office upon discharge to schedule a hospital follow up within 1 week. -For any concerning signs or symptoms please call 911 or proceed to the nearest emergency department Discharge Orders/Prescriptions Prescriptions: New furosemide 20 mg Tablet 20 mg PO DAILY 30 Days Qty: 30 0RF lactulose 20 gram/30 mL Solution 20 g PO TID 30 Days Qty: 2700 0RF Continued multivitamin Tablet 1 tab PO DAILY warfarin 2.5 mg Tablet 2.5 mg PO SUSA spironolactone 25 mg Tablet 12.5 mg PO DAILY nadolol 20 mg Tablet 20 mg PO QHS pantoprazole [Protonix] 40 mg Tablet,Delayed Release (Dr/Ec) 40 mg PO DAILY ferrous sulfate 325 mg (65 mg iron) Tablet 325 mg PO DAILY sertraline 50 mg Tablet 50 mg PO DAILY potassium chloride [Klor-Con M20] 20 mEq Tablet,Er Particles/Crystals 20 meq PO DAILY warfarin 2 mg Tablet 2 mg PO MOTUWETHFR fludrocortisone 0.1 mg tablet 0.2 mg PO BREAKFAST acetaminophen 325 mg Tablet 650 mg PO Q4H PRN (Reason: Pain) Boost Glucose Control 0.06-1.1 gram-kcal/mL Liquid 237 ml PO QHS Discontinued furosemide [Lasix] 40 mg Tablet 40 mg PO DAILY acetaminophen 500 mg Tablet 1,000 mg PO DAILY Referrals / [facility]: [facility] [[facility] - Disposition Disposition (needs filled in before D/C Order can be placed): NonSkilled NH/Intermed Care Charges/Coding Visit Charges Inpatient E&M: 74326 Disch Hosp
--- NOTE | 2022-01-17 12:23 | NURSING ---
I spoke with Olya at [facility] to make them aware of pt being d/c
[2022-01-17 13:10] LABS: Bedside Glucose 109 mg/dL (74-106)
--- NOTE | 2022-01-17 15:37 | NURSING ---
Report called to HAYLEE Dobson at [facility].
[2022-01-17 15:43] VITALS: BP 101/50; PULSE 53; RESP 16; TEMP 36.8; O2SAT 96
--- NOTE | 2022-01-17 17:12 | NURSING ---
Charting reviewed with Adam Anderson RN.
[2022-01-19 11:41] LABS: Pathologist Review Reviewed
== END 2022-01-17 17:50 | disposition intermediate care facility (04) | DRG 441 ==
LOC: ED 14:18 → PCU 14:45
PROVIDERS: Admitting Provider Internal Medicine; Emergency Provider Emergency Medicine; Visit Provider Internal Medicine
DX: K75.81 Nonalcoholic steatohepatitis (NASH) (principal); G92.8 Other toxic encephalopathy; D61.818 Other pancytopenia; F02.80 Dementia in other diseases classified elsewhere, unspecified severity, without behavioral disturbance, psychotic disturbance, mood disturbance, and anxiety; G30.9 Alzheimer's disease, unspecified; I48.0 Paroxysmal atrial fibrillation; J44.9 Chronic obstructive pulmonary disease, unspecified; E11.9 Type 2 diabetes mellitus without complications; K74.60 Unspecified cirrhosis of liver; I10 Essential (primary) hypertension; E78.5 Hyperlipidemia, unspecified; K76.9 Liver disease, unspecified; K76.82 Hepatic encephalopathy; Z51.5 Encounter for palliative care; Z87.891 Personal history of nicotine dependence; Z66 Do not resuscitate; Z79.01 Long term (current) use of anticoagulants; R53.81 Other malaise; R62.7 Adult failure to thrive; Z86.73 Personal history of transient ischemic attack (TIA), and cerebral infarction without residual deficits
CPT/HCPCS: 36415; 36416; 70450; 71046; 72125; 80053; 81001; 82140; 82248; 82306; 82607; 82962; 83735; 84100; 84443; 85025; 85610; 87426; 87811; 93005; 93970; 97162; 97166; 97802; 99251; 99285; 99406; J7040; J7120; A4216; G0463; J0610

== ENCOUNTER → 2022-01-19 | Outpatient (REF) | payer MEDICARE, MEDICAID, SELFPAY ==
[2022-01-19 07:19] LABS: Anion Gap 5 (5-15); BUN 13 mg/dL (7-18); BUN/Creat Ratio 14.3 RATIO (10-20); Calcium,Total 7.7 mg/dL (8.5-10.1); Chloride 109 mmol/L (98-107); Creatinine, Serum 0.91 mg/dL (0.70-1.30); EST Glomerular Filtration Rate 87 mL/min (>60); Est Glom Filt Rate - Afr Amer 105 mL/min (>60); Glucose 101 mg/dL (74-106); Potassium 3.6 mmol/L (3.5-5.1); Sodium Level 139 mmol/L (136-145)
== END ==
LOC: OLS.SW 04:00
PROVIDERS: Visit Provider Family Medicine
DX: I10 Essential (primary) hypertension (principal); E11.9 Type 2 diabetes mellitus without complications
CPT/HCPCS: 36415; 80048

== ENCOUNTER → 2022-01-21 | Outpatient (REF) | payer MEDICARE, MEDICAID, SELFPAY ==
[2022-01-21 06:55] LABS: INR Fingerstick 1.6; Prothrombin Time Fingerstick 19.6 SEC (11.7-14.9)
== END ==
LOC: OLS.SW 05:00
PROVIDERS: Visit Provider Internal Medicine
DX: Z79.01 Long term (current) use of anticoagulants (principal)
CPT/HCPCS: 36416; 85610

== ENCOUNTER → 2022-01-26 | Outpatient (REF) | payer MEDICARE, MEDICAID, SELFPAY ==
[2022-01-26 08:20] LABS: Anion Gap 6 (5-15); BUN 10 mg/dL (7-18); BUN/Creat Ratio 13.8 RATIO (10-20); Calcium,Total 8.2 mg/dL (8.5-10.1); Chloride 110 mmol/L (98-107); Creatinine, Serum 0.72 mg/dL (0.70-1.30); EST Glomerular Filtration Rate 113 mL/min (>60); Est Glom Filt Rate - Afr Amer 137 mL/min (>60); Glucose 110 mg/dL (74-106); Potassium 3.9 mmol/L (3.5-5.1); Sodium Level 141 mmol/L (136-145)
[2022-01-26 10:14] LABS: International Normalized Ratio 2.1; Prothrombin Time (Protime)PT. 23.4 SECONDS (11.7-14.9)
== END ==
LOC: OLS.SW 04:00
PROVIDERS: Visit Provider Internal Medicine
DX: Z79.01 Long term (current) use of anticoagulants (principal)
CPT/HCPCS: 36415; 80048; 85610

== ENCOUNTER → 2022-01-28 | Outpatient (REF) | payer MEDICARE, MEDICAID, SELFPAY ==
[2022-01-28 08:31] LABS: INR Fingerstick 1.5
== END ==
LOC: OLS.SW 05:00
PROVIDERS: Visit Provider Internal Medicine
DX: Z79.01 Long term (current) use of anticoagulants (principal)
CPT/HCPCS: 36416; 85610

== ENCOUNTER → 2022-02-02 | Outpatient (REF) | payer MEDICARE, MEDICAID, SELFPAY ==
[2022-02-02 09:34] LABS: Anion Gap 5 (5-15); BUN 11 mg/dL (7-18); BUN/Creat Ratio 12.1 RATIO (10-20); Calcium,Total 8.1 mg/dL (8.5-10.1); Chloride 107 mmol/L (98-107); Creatinine, Serum 0.91 mg/dL (0.70-1.30); EST Glomerular Filtration Rate 87 mL/min (>60); Est Glom Filt Rate - Afr Amer 105 mL/min (>60); Glucose 106 mg/dL (74-106); Potassium 4.1 mmol/L (3.5-5.1); Sodium Level 137 mmol/L (136-145)
== END ==
LOC: OLS.SW 05:00
PROVIDERS: Visit Provider Internal Medicine
DX: I10 Essential (primary) hypertension (principal)
CPT/HCPCS: 36415; 80048

== ENCOUNTER → 2022-02-04 | Outpatient (REF) | payer MEDICARE, MEDICAID, SELFPAY ==
[2022-02-04 07:46] LABS: Absolute Lymphocyte Count 0.68 X10^3/uL (0.83-4.51); Absolute Neutrophil Count 1.9 X10^3/uL (2.0-7.7); Basophil# 0.01 X10^3/uL; Basophil% 0.3 % (0-1); Eosinophil# 0.05 X10^3/uL; Eosinophils% 1.6 % (0-5); Hematocrit 27.1 % (40-54); Hemoglobin 8.4 g/dL (13.0-16.5); Lymphocyte # 0.68 X10^3/ul (0.83-4.51); Lymphocyte % 21.6 % (19-41); Mean Corpuscular Hgb 29.9 pg (27.0-32.0); Mean Corpuscular Volume 96.4 fL (80-94); Mean Platelet Vol. 11.9 fl (6.2-12.0); Monocyte# 0.54 X10^3/uL; Monocyte% 17.1 % (0-10); NRBC Flagged by Analyzer 0 % (0-5); Neutrophil # 1.86 X10^3/uL (2.7-7.7); Neutrophil % 59.1 % (47-70); Platelet Count 120 K/mm3 (150-450); RBC Distribution Width CV 16.8 % (11.6-14.6); RBC Distribution Width SD 59.5 fl (35.1-43.9); Red Blood Count 2.81 M/mm3 (4.6-6.2); White Blood Count 3.2 K/mm3 (4.4-11.0)
[2022-02-04 07:59] LABS: International Normalized Ratio 1.8; Prothrombin Time (Protime)PT. 20.8 SECONDS (11.7-14.9)
== END ==
LOC: OLS.SW 05:00
PROVIDERS: Visit Provider Internal Medicine
DX: N39.0 Urinary tract infection, site not specified (principal); E11.9 Type 2 diabetes mellitus without complications; Z79.01 Long term (current) use of anticoagulants
CPT/HCPCS: 36415; 85025; 85610

== ENCOUNTER → 2022-02-06 | Outpatient (REF) | payer MEDICARE, MEDICAID, SELFPAY ==
[2022-02-06 08:06] LABS: INR Fingerstick 1.6; Prothrombin Time Fingerstick 18.8 SEC (11.7-14.9)
== END ==
LOC: OLS.SW 05:00
PROVIDERS: Visit Provider Internal Medicine
DX: Z79.01 Long term (current) use of anticoagulants (principal)
CPT/HCPCS: 36416; 85610

== ENCOUNTER → 2022-02-09 | Outpatient (REF) | payer MEDICARE, MEDICAID, SELFPAY ==
[2022-02-09 07:46] LABS: Bacteria 0 SEEN /hpf (None Seen); Mucous, Urine 0 SEEN /hpf (<or=2+); Red Blood Cells-Urine 0 SEEN /hpf (0-5); Squamous Epithelial Cells - UA 0 SEEN /hpf (0-5); White Blood Cells 0 SEEN /hpf (0-5)
[2022-02-09 08:29] LABS: Color, Urine Yellow (Yellow); Glucose, Dipstick Normal (Normal); Ketone-Dipstick Negative (Negative); Leukocyte Esterase-Dipstick Negative /ul (Negative); Nitrite-Dipstick Negative (Negative); Occult Blood-Urine Negative /ul (Negative); Protein-Dipstick Negative (Negative); Urine Bilirubin Dipstick Negative (Negative); Urine Clarity Sl. Cloudy (Clear); Urine Urobilinogen 4 mg/dl (Normal); Urine pH 6.5 (5.0 - 8.0)
[2022-02-09 08:37] LABS: Anion Gap 7 (5-15); BUN 14 mg/dL (7-18); BUN/Creat Ratio 17.2 RATIO (10-20); Chloride 108 mmol/L (98-107); Creatinine, Serum 0.81 mg/dL (0.70-1.30); EST Glomerular Filtration Rate 99 mL/min (>60); Est Glom Filt Rate - Afr Amer 119 mL/min (>60); Glucose 102 mg/dL (74-106); Potassium 3.8 mmol/L (3.5-5.1); Sodium Level 140 mmol/L (136-145)
== END ==
LOC: OLS.SW 04:00
PROVIDERS: Referring Provider Internal Medicine; Visit Provider Internal Medicine
DX: K74.60 Unspecified cirrhosis of liver (principal); J44.9 Chronic obstructive pulmonary disease, unspecified; E11.9 Type 2 diabetes mellitus without complications; N39.0 Urinary tract infection, site not specified
CPT/HCPCS: 36415; 80048; 81001; 87086

== ENCOUNTER → 2022-02-13 | Outpatient (REF) | payer MEDICARE, MEDICAID, SELFPAY ==
[2022-02-13 11:15] LABS: INR Fingerstick 1.3; Prothrombin Time Fingerstick 15.7 SEC (11.7-14.9)
== END ==
LOC: OLS.SW 05:00
PROVIDERS: Visit Provider Internal Medicine
DX: Z79.01 Long term (current) use of anticoagulants (principal)
CPT/HCPCS: 36416; 85610

== ENCOUNTER → 2022-02-16 | Outpatient (REF) | payer MEDICARE, MEDICAID, SELFPAY ==
[2022-02-16 08:19] LABS: Anion Gap 5 (5-15); BUN 13 mg/dL (7-18); BUN/Creat Ratio 16.9 RATIO (10-20); Chloride 111 mmol/L (98-107); Creatinine, Serum 0.77 mg/dL (0.70-1.30); EST Glomerular Filtration Rate 105 mL/min (>60); Est Glom Filt Rate - Afr Amer 127 mL/min (>60); Glucose 102 mg/dL (74-106); Potassium 3.8 mmol/L (3.5-5.1); Sodium Level 141 mmol/L (136-145)
== END ==
LOC: OLS.SW 05:00
PROVIDERS: Visit Provider Internal Medicine
DX: I10 Essential (primary) hypertension (principal); R53.83 Other fatigue
CPT/HCPCS: 36415; 80048

== ENCOUNTER → 2022-02-20 | Outpatient (REF) | payer MEDICARE, MEDICAID, SELFPAY ==
[2022-02-20 07:00] LABS: INR Fingerstick 1.3; Prothrombin Time Fingerstick 15.6 SEC (11.7-14.9)
== END ==
LOC: OLS.SW 04:00
PROVIDERS: Referring Provider Internal Medicine; Visit Provider Internal Medicine
DX: Z79.01 Long term (current) use of anticoagulants (principal)
CPT/HCPCS: 36416; 85610

== ENCOUNTER → 2022-02-23 | Outpatient (REF) | payer MEDICARE, MEDICAID, SELFPAY ==
[2022-02-23 08:05] LABS: Anion Gap 4 (5-15); BUN 11 mg/dL (7-18); BUN/Creat Ratio 14.6 RATIO (10-20); Calcium,Total 8.6 mg/dL (8.5-10.1); Chloride 109 mmol/L (98-107); Creatinine, Serum 0.75 mg/dL (0.70-1.30); EST Glomerular Filtration Rate 108 mL/min (>60); Est Glom Filt Rate - Afr Amer 131 mL/min (>60); Glucose 107 mg/dL (74-106); Potassium 4.1 mmol/L (3.5-5.1); Sodium Level 139 mmol/L (136-145)
== END ==
LOC: OLS.SW 04:00
PROVIDERS: Referring Provider Internal Medicine; Visit Provider Internal Medicine
DX: J44.9 Chronic obstructive pulmonary disease, unspecified (principal)
CPT/HCPCS: 36415; 80048

== ENCOUNTER → 2022-02-27 | Outpatient (REF) | payer MEDICARE, MEDICAID, SELFPAY ==
[2022-02-27 09:00] LABS: INR Fingerstick 1.7; Prothrombin Time Fingerstick 20.3 SEC (11.7-14.9)
== END ==
LOC: OLS.SW 05:00
PROVIDERS: Visit Provider Internal Medicine
DX: Z79.01 Long term (current) use of anticoagulants (principal)
CPT/HCPCS: 36416; 85610

== ENCOUNTER → 2022-03-02 | Outpatient (REF) | payer MEDICARE, MEDICAID, SELFPAY ==
[2022-03-02 08:59] LABS: Anion Gap 4 (5-15); BUN 14 mg/dL (7-18); BUN/Creat Ratio 16.5 RATIO (10-20); Calcium,Total 7.9 mg/dL (8.5-10.1); Chloride 109 mmol/L (98-107); Creatinine, Serum 0.85 mg/dL (0.70-1.30); EST Glomerular Filtration Rate 94 mL/min (>60); Est Glom Filt Rate - Afr Amer 114 mL/min (>60); Glucose 95 mg/dL (74-106); Sodium Level 139 mmol/L (136-145)
== END ==
LOC: OLS.SW 05:00
PROVIDERS: Visit Provider Internal Medicine
DX: I10 Essential (primary) hypertension (principal); Z79.899 Other long term (current) drug therapy
CPT/HCPCS: 36415; 80048

== ENCOUNTER → 2022-03-06 | Outpatient (REF) | payer MEDICARE, MEDICAID, SELFPAY ==
[2022-03-06 07:20] LABS: INR Fingerstick 2.7; Prothrombin Time Fingerstick 30.8 SEC (11.7-14.9)
== END ==
LOC: OLS.SW 04:00
PROVIDERS: Visit Provider Internal Medicine
DX: Z79.01 Long term (current) use of anticoagulants (principal); Z79.899 Other long term (current) drug therapy
CPT/HCPCS: 36416; 85610

== ENCOUNTER → 2022-03-09 | Outpatient (REF) | payer MEDICARE, MEDICAID, SELFPAY ==
[2022-03-09 09:14] LABS: Anion Gap 2 (5-15); BUN 13 mg/dL (7-18); BUN/Creat Ratio 14.3 RATIO (10-20); Calcium,Total 8.3 mg/dL (8.5-10.1); Chloride 110 mmol/L (98-107); Creatinine, Serum 0.91 mg/dL (0.70-1.30); EST Glomerular Filtration Rate 87 mL/min (>60); Est Glom Filt Rate - Afr Amer 105 mL/min (>60); Glucose 102 mg/dL (74-106); Sodium Level 140 mmol/L (136-145)
[2022-03-09 09:15] LABS: International Normalized Ratio 3.5; Prothrombin Time (Protime)PT. 34.7 SECONDS (11.7-14.9)
== END ==
LOC: OLS.SW 04:00
PROVIDERS: Referring Provider Internal Medicine; Visit Provider Internal Medicine
DX: Z79.01 Long term (current) use of anticoagulants (principal); I10 Essential (primary) hypertension; J44.9 Chronic obstructive pulmonary disease, unspecified
CPT/HCPCS: 36415; 80048; 85610

== ENCOUNTER → 2022-03-10 | Outpatient (REF) | payer MEDICARE, MEDICAID, SELFPAY ==
[2022-03-10 09:48] LABS: International Normalized Ratio 3.6; Prothrombin Time (Protime)PT. 35.4 SECONDS (11.7-14.9)
== END ==
LOC: OLS.SW 07:25
PROVIDERS: Visit Provider Internal Medicine
DX: Z79.01 Long term (current) use of anticoagulants (principal)
CPT/HCPCS: 36415; 85610

== ENCOUNTER → 2022-03-12 | Outpatient (REF) | payer MEDICARE, MEDICAID, SELFPAY ==
[2022-03-12 08:15] LABS: Prothrombin Time Fingerstick 23.5 SEC (11.7-14.9)
== END ==
LOC: OLS.SW 05:00
PROVIDERS: Visit Provider Internal Medicine
DX: Z79.01 Long term (current) use of anticoagulants (principal)
CPT/HCPCS: 36416; 85610

== ENCOUNTER → 2022-03-13 | Outpatient (REF) | payer MEDICARE, MEDICAID, SELFPAY ==
[2022-03-13 07:56] LABS: INR Fingerstick 1.6; Prothrombin Time Fingerstick 19.8 SEC (11.7-14.9)
== END ==
LOC: OLS.SW 05:00
PROVIDERS: Visit Provider Internal Medicine
DX: Z79.01 Long term (current) use of anticoagulants (principal)
CPT/HCPCS: 36416; 85610

== ENCOUNTER → 2022-03-16 | Outpatient (REF) | payer MEDICARE, MEDICAID, SELFPAY ==
[2022-03-16 07:56] LABS: Anion Gap 3 (5-15); BUN 14 mg/dL (7-18); BUN/Creat Ratio 16.8 RATIO (10-20); Calcium,Total 8.2 mg/dL (8.5-10.1); Chloride 112 mmol/L (98-107); Creatinine, Serum 0.83 mg/dL (0.70-1.30); EST Glomerular Filtration Rate 96 mL/min (>60); Est Glom Filt Rate - Afr Amer 116 mL/min (>60); Glucose 102 mg/dL (74-106); Potassium 3.7 mmol/L (3.5-5.1); Sodium Level 142 mmol/L (136-145)
== END ==
LOC: OLS.SW 05:00
PROVIDERS: Visit Provider Internal Medicine
DX: F03.90 Unspecified dementia, unspecified severity, without behavioral disturbance, psychotic disturbance, mood disturbance, and anxiety (principal); Z79.899 Other long term (current) drug therapy
CPT/HCPCS: 36415; 80048

== ENCOUNTER → 2022-03-20 | Outpatient (REF) | payer MEDICARE, MEDICAID, SELFPAY ==
[2022-03-20 13:35] LABS: International Normalized Ratio 2.2; Prothrombin Time (Protime)PT. 23.7 SECONDS (11.7-14.9)
[2022-03-20 13:41] LABS: Anion Gap 4 (5-15); BUN 12 mg/dL (7-18); BUN/Creat Ratio 13.9 RATIO (10-20); Calcium,Total 8.1 mg/dL (8.5-10.1); Chloride 111 mmol/L (98-107); Creatinine, Serum 0.86 mg/dL (0.70-1.30); EST Glomerular Filtration Rate 92 mL/min (>60); Est Glom Filt Rate - Afr Amer 111 mL/min (>60); Glucose 153 mg/dL (74-106); Potassium 3.9 mmol/L (3.5-5.1); Sodium Level 141 mmol/L (136-145)
== END ==
LOC: OLS.SW 05:00
PROVIDERS: Visit Provider Internal Medicine
DX: F03.90 Unspecified dementia, unspecified severity, without behavioral disturbance, psychotic disturbance, mood disturbance, and anxiety (principal); Z79.899 Other long term (current) drug therapy; Z79.01 Long term (current) use of anticoagulants
CPT/HCPCS: 36415; 80048; 85610

== ENCOUNTER → 2022-03-27 | Outpatient (REF) | payer MEDICARE, MEDICAID, SELFPAY ==
[2022-03-27 07:48] LABS: Anion Gap 5 (5-15); BUN 16 mg/dL (7-18); BUN/Creat Ratio 16.5 RATIO (10-20); Calcium,Total 7.7 mg/dL (8.5-10.1); Chloride 109 mmol/L (98-107); Creatinine, Serum 0.97 mg/dL (0.70-1.30); EST Glomerular Filtration Rate 80 mL/min (>60); Est Glom Filt Rate - Afr Amer 97 mL/min (>60); Glucose 123 mg/dL (74-106); Potassium 3.8 mmol/L (3.5-5.1); Sodium Level 139 mmol/L (136-145)
[2022-03-27 09:37] LABS: International Normalized Ratio 2.2; Prothrombin Time (Protime)PT. 24.2 SECONDS (11.7-14.9)
== END ==
LOC: OLS.SW 04:00
PROVIDERS: Referring Provider Internal Medicine; Visit Provider Internal Medicine
DX: I10 Essential (primary) hypertension (principal); F03.90 Unspecified dementia, unspecified severity, without behavioral disturbance, psychotic disturbance, mood disturbance, and anxiety; Z79.899 Other long term (current) drug therapy; Z79.01 Long term (current) use of anticoagulants
CPT/HCPCS: 36415; 80048; 85610

== ENCOUNTER → 2022-04-03 | Outpatient (REF) | payer MEDICARE, MEDICAID, SELFPAY ==
[2022-04-03 08:40] LABS: Anion Gap 3 (5-15); BUN 12 mg/dL (7-18); Calcium,Total 8.2 mg/dL (8.5-10.1); Chloride 111 mmol/L (98-107); EST Glomerular Filtration Rate 100 mL/min (>60); Est Glom Filt Rate - Afr Amer 121 mL/min (>60); Glucose 109 mg/dL (74-106); Potassium 3.8 mmol/L (3.5-5.1); Sodium Level 141 mmol/L (136-145)
[2022-04-03 09:38] LABS: International Normalized Ratio 1.9; Prothrombin Time (Protime)PT. 21.1 SECONDS (11.7-14.9)
== END ==
LOC: OLS.SW 05:00
PROVIDERS: Visit Provider Internal Medicine
DX: Z79.01 Long term (current) use of anticoagulants (principal)
CPT/HCPCS: 36415; 80048; 85610

== ENCOUNTER → 2022-04-10 | Outpatient (REF) | payer MEDICARE, MEDICAID, SELFPAY ==
[2022-04-10 09:23] LABS: Anion Gap 7 (5-15); BUN 14 mg/dL (7-18); BUN/Creat Ratio 15.3 RATIO (10-20); Calcium,Total 7.6 mg/dL (8.5-10.1); Chloride 107 mmol/L (98-107); Creatinine, Serum 0.91 mg/dL (0.70-1.30); EST Glomerular Filtration Rate 86 mL/min (>60); Est Glom Filt Rate - Afr Amer 104 mL/min (>60); Glucose 86 mg/dL (74-106); Sodium Level 138 mmol/L (136-145)
[2022-04-10 09:30] LABS: International Normalized Ratio 1.6; Prothrombin Time (Protime)PT. 18.5 SECONDS (11.7-14.9)
== END ==
LOC: OLS.SW 05:00
PROVIDERS: Visit Provider Internal Medicine
DX: Z79.01 Long term (current) use of anticoagulants (principal)
CPT/HCPCS: 36415; 80048; 85610

== ENCOUNTER → 2022-05-15 | Outpatient (REF) | payer MEDICARE, MEDICAID, SELFPAY ==
[2022-05-15 08:30] LABS: INR Fingerstick 1.1; Prothrombin Time Fingerstick 13.2 SEC (11.7-14.9)
== END ==
LOC: OLS.SW 05:00
PROVIDERS: Visit Provider Internal Medicine
DX: Z79.01 Long term (current) use of anticoagulants (principal)
CPT/HCPCS: 36416; 85610

== ENCOUNTER → 2022-05-21 | Outpatient (REF) | payer MEDICARE, MEDICAID, SELFPAY ==
[2022-05-21 09:46] LABS: Hematocrit 32.3 % (40-54); Hemoglobin 9.8 g/dL (13.0-16.5); Mean Corp Hgb Conc 30.3 g/dL (32-36); Mean Corpuscular Hgb 30.9 pg (27.0-32.0); Mean Corpuscular Volume 101.9 fL (80-94); Mean Platelet Vol. 11.1 fl (6.2-12.0); POSITIVE MORPHOLOGY YES; Platelet Count 180 K/mm3 (150-450); RBC Distribution Width CV 19.6 % (11.6-14.6); Red Blood Count 3.17 M/mm3 (4.6-6.2); White Blood Count 5.7 K/mm3 (4.4-11.0)
[2022-05-21 10:08] LABS: Anion Gap 4 (5-15); BUN 16 mg/dL (7-18); BUN/Creat Ratio 11.7 RATIO (10-20); Calcium,Total 8.3 mg/dL (8.5-10.1); Chloride 108 mmol/L (98-107); Creatinine, Serum 1.37 mg/dL (0.70-1.30); EST Glomerular Filtration Rate 54 mL/min (>60); Est Glom Filt Rate - Afr Amer 65 mL/min (>60); Glucose 130 mg/dL (74-106); Potassium 4.1 mmol/L (3.5-5.1); Sodium Level 140 mmol/L (136-145)
[2022-05-21 10:28] LABS: Hemoglobin A1c 5.4 % (3.8-5.6)
[2022-05-21 10:36] LABS: Scan Indicated on CBC? Y/N YES- FLAGS NOTED
[2022-05-21 10:43] LABS: Differential Comment SCANNED
== END ==
LOC: OLS.SW 05:00
PROVIDERS: Visit Provider Internal Medicine
DX: J44.9 Chronic obstructive pulmonary disease, unspecified (principal); Z79.899 Other long term (current) drug therapy
CPT/HCPCS: 36415; 80048; 83036; 85027

== ENCOUNTER → 2022-05-22 | Outpatient (REF) | payer MEDICARE, MEDICAID, SELFPAY ==
[2022-05-22 08:20] LABS: INR Fingerstick 1.6; Prothrombin Time Fingerstick 19.2 SEC (11.7-14.9)
== END ==
LOC: OLS.SW 05:00
PROVIDERS: Visit Provider Internal Medicine
DX: Z79.01 Long term (current) use of anticoagulants (principal)
CPT/HCPCS: 36416; 85610

== ENCOUNTER → 2022-06-01 | Outpatient (REF) | payer MEDICARE, MEDICAID, SELFPAY ==
[2022-06-01 10:26] LABS: INR Fingerstick 1.9; Prothrombin Time Fingerstick 22.1 SEC (11.7-14.9)
== END ==
LOC: OLS.SW 04:00
PROVIDERS: Referring Provider Family Medicine; Visit Provider Family Medicine
DX: J44.9 Chronic obstructive pulmonary disease, unspecified (principal); Z79.01 Long term (current) use of anticoagulants
CPT/HCPCS: 36416; 85610

== ENCOUNTER → 2022-06-08 | Outpatient (REF) | payer MEDICARE, MEDICAID, SELFPAY ==
[2022-06-08 09:40] LABS: INR Fingerstick 1.3; Prothrombin Time Fingerstick 16.5 SEC (11.7-14.9)
== END ==
LOC: OLS.SW 05:00
PROVIDERS: Visit Provider Family Medicine
DX: K75.81 Nonalcoholic steatohepatitis (NASH) (principal); Z79.899 Other long term (current) drug therapy
CPT/HCPCS: 36416; 85610

== ENCOUNTER → 2022-06-15 | Outpatient (REF) | payer MEDICARE, MEDICAID, SELFPAY ==
[2022-06-15 08:25] LABS: INR Fingerstick 3.4; Prothrombin Time Fingerstick 35.6 SEC (11.7-14.9)
== END ==
LOC: OLS.SW 05:00
PROVIDERS: Visit Provider Family Medicine
DX: Z79.01 Long term (current) use of anticoagulants (principal)
CPT/HCPCS: 36416; 85610

== ENCOUNTER → 2022-06-22 | Outpatient (REF) | payer MEDICAID, SELFPAY ==
[2022-06-22 08:00] LABS: INR Fingerstick 6.3; Prothrombin Time Fingerstick 64.5 SEC (11.7-14.9)
[2022-06-22 11:30] LABS: International Normalized Ratio 7.1
== END | disposition home or self-care (01) ==
LOC: OLS.SW 05:00
PROVIDERS: Visit Provider Family Medicine
DX: K75.81 Nonalcoholic steatohepatitis (NASH) (principal)
CPT/HCPCS: 36415; 36416; 85610

== ENCOUNTER → 2022-06-25 | Outpatient (REF) | payer MEDICARE, MEDICAID, SELFPAY ==
[2022-06-25 08:40] LABS: INR Fingerstick 3.7; Prothrombin Time Fingerstick 38.8 SEC (11.7-14.9)
== END ==
LOC: OLS.SW 05:00
PROVIDERS: Visit Provider Family Medicine
DX: K75.81 Nonalcoholic steatohepatitis (NASH) (principal)
CPT/HCPCS: 36416; 85610

== ENCOUNTER → 2022-07-01 | Outpatient (REF) | payer MEDICARE, SELFPAY ==
[2022-07-01 08:21] LABS: INR Fingerstick 4.2; Prothrombin Time Fingerstick 44.3 SEC (11.7-14.9)
[2022-07-01 08:33] LABS: International Normalized Ratio 4.7; Prothrombin Time (Protime)PT. 43.9 SECONDS (11.7-14.9)
== END ==
LOC: OLS.SW 05:00
PROVIDERS: Visit Provider Family Medicine
DX: Z79.01 Long term (current) use of anticoagulants (principal)
CPT/HCPCS: 36416; 85610

== ENCOUNTER → 2022-07-02 | Outpatient (REF) | payer MEDICARE, MEDICAID, SELFPAY ==
[2022-07-02 10:34] LABS: Absolute Lymphocyte Count 0.91 X10^3/uL (0.83-4.51); Absolute Neutrophil Count 3.6 X10^3/uL (2.0-7.7); Basophil# 0.02 X10^3/uL; Basophil% 0.4 % (0-1); Eosinophil# 0.18 X10^3/uL; Eosinophils% 3.4 % (0-5); Hematocrit 34.4 % (40-54); Hemoglobin 11.1 g/dL (13.0-16.5); Lymphocyte # 0.91 X10^3/ul (0.83-4.51); Lymphocyte % 17.1 % (19-41); Mean Corp Hgb Conc 32.3 g/dL (32-36); Mean Corpuscular Hgb 31.6 pg (27.0-32.0); Mean Platelet Vol. 11.3 fl (6.2-12.0); Monocyte# 0.59 X10^3/uL; Monocyte% 11.1 % (0-10); NRBC Flagged by Analyzer 0 % (0-5); Neutrophil # 3.58 X10^3/uL (2.7-7.7); Neutrophil % 67.4 % (47-70); Platelet Count 187 K/mm3 (150-450); RBC Distribution Width CV 15.8 % (11.6-14.6); Red Blood Count 3.51 M/mm3 (4.6-6.2); White Blood Count 5.3 K/mm3 (4.4-11.0)
[2022-07-02 10:52] LABS: ALB/GLOB Ratio 0.4 RATIO (0.9-2.4); AST(SGOT) 25 U/L (15-37); Alanine Aminotransfer ALT/SGPT 15 U/L (16-61); Albumin, Serum 1.9 g/dL (3.2-5.0); Alkaline Phosphatase 142 U/L (45-117); Anion Gap 3 (5-15); BUN 12 mg/dL (7-18); BUN/Creat Ratio 15.1 RATIO (10-20); Calcium,Total 8.7 mg/dL (8.5-10.1); Chloride 108 mmol/L (98-107); EST Glomerular Filtration Rate 101 mL/min (>60); Est Glom Filt Rate - Afr Amer 122 mL/min (>60); Globulin 4.5 g/dL (2.2-4.2); Glucose 122 mg/dL (74-106); Potassium 3.9 mmol/L (3.5-5.1); Protein, Total 6.4 g/dL (6.4-8.2); Sodium Level 138 mmol/L (136-145)
== END ==
LOC: OLS.SW 08:20
PROVIDERS: Visit Provider Family Medicine
DX: K74.60 Unspecified cirrhosis of liver (principal); J44.9 Chronic obstructive pulmonary disease, unspecified
CPT/HCPCS: 36415; 80053; 82140; 85025

== ENCOUNTER → 2022-07-16 | Outpatient (REF) | payer MEDICARE, MEDICAID, SELFPAY ==
[2022-07-16 07:20] LABS: INR Fingerstick 3.6; Prothrombin Time Fingerstick 38.5 SEC (11.7-14.9)
== END ==
LOC: OLS.SW 05:00
PROVIDERS: Visit Provider Family Medicine
DX: Z79.01 Long term (current) use of anticoagulants (principal); Z79.899 Other long term (current) drug therapy
CPT/HCPCS: 36416; 85610